=== PATIENT | male | born 1950 | race Caucasian/White ===

== ENCOUNTER 2021-12-31 08:52 | Observation (INO) | payer MEDICARE, SELFPAY ==
[2021-12-31] VITALS (13 sets, daily range): BP systolic 98–139; BP diastolic 43–63; PULSE 78–96; RESP 16–20; TEMP 36.6–37.4; O2SAT 95–100
--- NOTE | ~2021-12-31 | XR_ITS ---
XR knee LT min 4V DATE: 12/31/2021 10:30 INDICATION: Fall. Left knee pain, anterior abrasions TECHNIQUE: 4 views including crosstable lateral COMPARISON: None FINDINGS: Mild loss of height of medial compartment joint space. No fracture or dislocation or joint effusion. Superior pole patellar enthesopathy at quadriceps tendon insertion. No radiopaque intra-articular loose body or chondrocalcinosis. IMPRESSION: No fracture or dislocation or joint effusion Mild loss of height of medial compartment joint space Reviewed, dictated and finalized at location A.
--- NOTE | ~2021-12-31 | XR_ITS ---
XR knee RT min 4V DATE: 12/31/2021 10:30 INDICATION: Fall. Pain, anterior abrasions. TECHNIQUE: 4 views including crosstable lateral COMPARISON: None FINDINGS: Mild enthesopathy of the superior pole of the patella at the quadriceps tendon insertion. No fracture or dislocation or joint effusion. No periosteal reaction or bone destruction. No radiopaq ue intra-articular loose body or chondrocalcinosis. IMPRESSION: No fracture or dislocation or joint effusion Reviewed, dictated and finalized at location A.
--- NOTE | ~2021-12-31 | US_ITS ---
US venous doppler [facility] DATE: 01/01/2022 08:16 INDICATION: Edema of the right lower extremity TECHNIQUE: Real-time and color flow imaging and Doppler analysis of the veins of the right lower extr emity COMPARISON: None FINDINGS: The greater saphenous vein is patent. There is spontaneous and phasic flow and normal augme ntation and color flow signal and normal compression of the deep veins of the right lower extremity. IMPRESSION: Negative Reviewed, dictated and finalized at Location A. Reviewed, dictated and finalized at location A. IMPRESSION: Negative
--- NOTE | ~2021-12-31 | CT_ITS ---
EXAMINATION: CT brain wo con DATE: 12/31/2021 10:24 INDICATION: Fall. Weakness. TECHNIQUE: Computed tomography (CT) of the head was performed without intravenous contrast. The mA wa s adjusted according to patient size. Iterative reconstruction technique was employed. Exam dose: 60 5.33 mGy-cm total exam DLP. COMPARISON: None FINDINGS: Bilateral vertebral artery and prominent bilateral carotid siphon internal carotid artery c alcifications. There is nonspecific diminished attenuation cerebral white matter, likely due to chronic small vessel ischemic changes. Moderate cerebral and cerebellar volume loss. No intracranial mass lesion or hemorrhage, midline shif t or mass effect or cerebrovascular accident. No midline shifts or mass effect. No subdural or epidur al hematoma. Small mucus retention cyst or polyp of the left maxillary sinus. Minimal septal soft tissue thickenin g of the ethmoid air cells. The paranasal sinuses and mastoid air cells are otherwise unremarkable. No fracture or bone destruction of the cranial vault. IMPRESSION: Cerebral atherosclerosis and chronic small vessel ischemic changes of the cerebral white matter No acute intracranial finding Reviewed, dictated and finalized at Location [facility]. Reviewed, dictated and finalized at location A.
--- NOTE | ~2021-12-31 | XR_ITS ---
XR chest 2V DATE: 12/31/2021 09:19 INDICATION: Hypotension. Weakness. Dialysis yesterday. TECHNIQUE: AP and lateral views COMPARISON: None FINDINGS: Mild cardiomegaly. No pulmonary infiltrate or consolidation, pleural effusion or pulmonary vascular congestion or pneumo thorax is detected. Degenerative spurring of the lower thoracic spine. IMPRESSION: Mild cardiomegaly; no active pulmonary disease Reviewed, dictated and finalized at location A.
--- NOTE | ~2021-12-31 | XR_ITS ---
XR pelvis 1-2V DATE: 12/31/2021 10:30 INDICATION: Fall. Pelvic pain. TECHNIQUE: AP view COMPARISON: None FINDINGS: Multilevel degenerative disc disease of the lumbar spine. The pubic symphysis and sacroiliac joints are intact. Mild bilateral hip osteoarthritis. No pelvic fr acture or bone destruction is noted. IMPRESSION: No pelvic fracture Reviewed, dictated and finalized at location A. IMPRESSION: No pelvic fracture
--- NOTE | ~2021-12-31 | CT_ITS ---
EXAMINATION: CT lumbar spine wo con DATE: 12/31/2021 10:24 INDICATION: Fall. Lower back pain. TECHNIQUE: Computed tomography (CT) of the lumbar spine was performed without intravenous contrast. A utomated exposure control and iterative reconstruction technique were employed. Exam dose: 1270.49 m Gy-cm total exam DLP. COMPARISON: None FINDINGS. Bilateral vas deferens calcifications, suggesting diabetes. Normal alignment of lumbar spine. No fracture or bone destruction, spondylolysis or spondylolisthesis . There is mildly severe degenerative disc disease at L3-4 and L4-5, with loss of disc space height, de generative spurring, vacuum phenomenon. There is posterior disc bulging at L3-4, L4-5 and to a lesser extent L5-S1. Normal alignment at the sacroiliac joints. IMPRESSION: Moderate degenerative changes of the lumbar spine; no fracture Bilateral vas deferens calcifications, suggesting diabetes Reviewed, dictated and finalized at Location [facility]. Reviewed, dictated and finalized at location A.
--- NOTE | 2021-12-31 08:59 | ECG_ITS ---
Measurements Intervals [place] Rate: 83 P: 42 NM: 204 QRS: 48 QRSD: 100 T: 43 QT: 394 QTc: 464 Interpretive Statements SINUS RHYTHM NORMAL ECG NO PREVIOUS ECG AVAILABLE FOR COMPARISON Electronically Signed On 12-31-2021 14:47:40 CDT by Behzad Thomas D.O.
[2021-12-31 09:13] LABS: Basophils Absolute Auto 0.1 K/mm3 (0.0-0.1); Basophils Percent Auto 0.4 % (0.2-1.2); Eosinophils Percent Auto 0.2 % (0-4.4); Hematocrit 30.1 % (42.0-52.0); Immature Granulocyte Absolute 0.13 K/mm3 (0.00-0.031); Immature Granulocyte Percent A 0.7 % (0-0.5); Lymphocytes Absolute Auto 0.97 K/mm3 (0.9-3.2); Lymphocytes Percent Auto 5.2 % (18.3-44.2); Mean Corpuscular HGB Conc 33.2 g/dl (32-36); Mean Corpuscular Volume 93.2 fl (80-100); Mean Platelet Volume 9.8 fl (7.4-10.4); Monocytes Absolute Auto 1.4 K/mm3 (0.1-0.6); Monocytes Percent Auto 7.3 % (2.6-8.5); Neutrophils Absolute Auto 16.2 K/mm3 (1.3-6.7); Neutrophils Percent Auto 86.2 % (45.5-73.1); Platelet Count Result 172 k/mm3 (150-375); Red Blood Count 3.23 M/mm3 (4.6-6.20); White Blood Count 18.8 K/mm3 (4.5-10.0)
[2021-12-31 09:22] LABS: Alanine Aminotransferase 27 U/L (6-50); Albumin Level 4.3 g/dL (3.5-5.1); Alkaline Phosphatase 42 U/L (38-126); Anion Gap 16 mmol/L (8-16); Aspartate Amino Transferase 30 U/L (17-59); Bilirubin,Total 0.4 mg/dL (0.2-1.3); Blood Urea Nitrogen 46 mg/dL (9-20); Calcium 8.4 mg/dL (8.4-10.2); Carbon Dioxide 27 mmol/L (22-30); Chloride 91 mmol/L (98-107); Estimated CRCL calculation 15 ml/min; Estimated Glomerular Filt Rate 11; Glucose 92 mg/dL (65-110); Potassium 5.1 mmol/L (3.4-5.0); Sodium 134 mmol/L (137-145)
--- NOTE | 2021-12-31 09:24 | ED.WEAKNESS ---
HPI - Weakness General Chief complaint: Weakness Stated complaint: Fall, Hypotension Time Seen by Provider: 12/31/21 09:12 Source: patient Mode of arrival: EMS Limitations: no limitations History of Present Illness HPI Narrative: This is a 71 year old male that presents to the ER for generalized weakness. Reports he fell at about midnight last night trying to get out of bed. He layed on the ground until this morning when he was finally able to get to the phone to call an ambulance. Reports generalized weakness and bilateral knee pain. Reports shortness of breath that seems to be at his baseline. Denies fever, cough, chest pain, abdominal pain, or dysuria. Related Data Home Medications Medication Instructions Recorded Confirmed amlodipine 5 mg tablet 5 mg PO DAILY 06/05/19 04/05/20 aspirin 81 mg tablet,delayed 81 mg PO DAILY 06/05/19 04/05/20 release (Adult Aspirin Regimen) calcium citrate 200 mg (950 mg) 200 mg PO DAILY 06/05/19 04/05/20 tablet (Calcitrate) carvedilol 25 mg tablet 25 mg PO Q12H 06/05/19 04/05/20 citalopram 40 mg tablet 20 mg PO DAILY 06/05/19 04/05/20 lisinopril 5 mg tablet 5 mg PO DAILY 06/05/19 04/05/20 cholecalciferol (vitamin D3) 1,250 50,000 unit PO 2XW 06/07/19 04/05/20 mcg (50,000 unit) tablet donepezil 10 mg tablet 10 mg PO DAILY 06/07/19 04/05/20 lovastatin 40 mg tablet 40 mg PO QPM 06/07/19 04/05/20 quetiapine 100 mg tablet 100 mg PO DAILY 06/07/19 04/05/20 clonazepam 1 mg tablet 1 mg PO BID 01/01/20 04/05/20 fenofibrate micronized 200 mg 160 mg PO DAILY 01/01/20 04/05/20 capsule gabapentin 300 mg capsule 600 mg PO TID 04/05/20 04/05/20 omega-3 fatty acids 1,000 mg 3,000 mg PO BID 04/05/20 04/05/20 capsule (Fish Oil Concentrate) Allergies Allergy/AdvReac Type Severity Reaction Status Date / Time No Known Allergies Allergy Verified 12/31/21 09:02 Review of Systems Review of Systems: CONSTITUTIONAL: Denies fever CARDIOVASCULAR: Denies chest pain, or edema. RESPIRATORY: Reports dyspnea. Denies cough GASTROINTESTINAL: Denies abdominal pain, nausea, vomiting GENITOURINARY: Denies dysuria NEUROLOGIC: Reports generalized weakness. All systems reviewed & are unremarkable except as noted in HPI and below PMFSH Past Medical History Medical History (Updated 12/31/21 @ 09:25 by Malka Eubanks PA-C) History of end stage renal disease History of hyperlipidemia History of hypertension History of pancreatitis Proteinuria due to type 2 diabetes mellitus Type 2 diabetes mellitus with hyperglycemia, with long-term current use of insulin Family History Family History Other Depression Diabetes mellitus Family history of cardiovascular disease Family history of congestive heart failure Family history of lung cancer Family history of mental disorder Hypertension Social History Social History Smoking status: Never smoker Alcohol intake: never Exam Narrative: GENERAL: Elderly, well-nourished, and in no acute distress. HEAD: Normocephalic, atraumatic. EYES: PERRLA and EOMI. ENT: Nares clear, no rhinorrhea or epistaxis. Mucous membranes moist. Oropharynx without tonsillar hypertrophy exudate or other lesions. Bilateral TMs pearly hearn non-bulging NECK: Supple. No adenopathy or masses. No midline cervical spine tenderness CHEST: Clear to auscultation. No respiratory distress. No wheezes rales or rhonchi HEART: Regular rate and rhythm. No murmur heard. Normal peripheral pulses. ABDOMEN: Soft, nontender, nondistended, normal active bowel sounds. BACK: No midline thoracic spine tenderness. Tender to palpation of midline lumbar spine EXTREMITIES: Normal range of motion. No edema or obvious deformity. SKIN: Warm, dry, no rash. NEURO: No focal deficits. Alert and oriented x3. PSYCH: Normal mood and affect Course Consultations Consultation #1: Spoke with [facility]
[2021-12-31 09:33] LABS: Lipase 81 U/L (23-300)
[2021-12-31 10:19] LABS: Creatine Kinase 255 U/L (55-170)
[2021-12-31 10:48] LABS: Influenza A QL RT-PCR Negative (Negative); Influenza B QL RT-PCR Negative (Negative); SARS-CoV-2 RNA PCR Negative
--- NOTE | 2021-12-31 10:53 | PC.NURSE ---
Patient attempting to give urine sample, patient reports that he does not produce much urine per day.
[2021-12-31 13:18] LABS: CRP 4.8 mg/dL (<1.0)
[2021-12-31] MEDS: ACETAMINOPHEN 500 MG TABLET 1000 MG PO (13:48)
[2021-12-31 13:57] LABS: Erythrocyte Sedimentation Rate 72 mm/hr (0-20)
--- NOTE | 2021-12-31 14:15 | ADMGEN ---
This patient, Jamie Fajardo, was admitted to Medical Room 252-01. Patient/family oriented to hospital policies and general routines including ID bracelet, bed and alarms, visiting hours, pain management, procedures, bathroom and other care routines, personal items, smoking policy, room service/diet, and visiting hours. Information on how to activate the Rapid Response Team has been discussed. Patient/Family are encouraged to report perceived risks to care and to ask questions if they do not understand what they are told or what they should do.
--- NOTE | 2021-12-31 17:00 | PM.IMHP ---
H&P: HPI History of Present Illness Date/Time: 12/31/21 17:00 Chief Complaint: Fall. Narrative: This is a very pleasant 71-year-old male with insulin dependent diabetes, end stage renal disease on hemodialysis, hypertension, sleep apnea, and other comorbidities who presented to the ED via EMS from home for evaluation after a fall. He up around midnight to use the restroom at which time he felt weak and dizzy, reporting that he was trembling . He was on able to stay upright and fell back into the bed and slid down onto the floor where he landed on his buttocks. He tried repeatedly to get himself up but was unable to do so. In fact he spent approximately 8 hours on the ground until he was able to crawl to a phone to call for help this morning. He has had similar instances and they seem to occur when going from seated to standing positions. He has had falls in the past but nothing recent. There was no head trauma or loss of consciousness with the fall last night however he does have history of syncope in similar settings, perhaps 2 times already this month. On arrival to the emergency department his blood pressure was 98/46 though unfortunately they did not obtain orthostatic vital signs. Imaging of the brain, lumbar spine, knees, pelvis, and chest x-ray showed no acute findings. Pertinent labs include a white blood cell count of 18.8, hemoglobin 10.0, sodium 134, potassium 5.1, BUN 46, creatinine 5.10, total CK 255, CRP 4.8. With further questioning he has not had any recent cold or flu symptoms, fever, chills, sweats, cough, nausea, vomiting, or dysuria. He has however just started to have diarrhea today, reporting lose dark green stools of which he has had several. He has no abdominal pain or discomfort and he denies sick contacts. He was on antibiotics several weeks ago for an upper respiratory infection but that has since resolved. No history of C diff. Review of Systems Review of Systems: Twelve systems were reviewed. Weight has remained stable. No sick contacts. Appetite has been good. No nausea or vomiting. He does still urinate a few times a day and he denies dysuria. He wears his CPAP at nighttime. He monitors his glucose closely and is rarely close to 200. Except as documented, all other systems were reviewed and are negative. [facility] Past Medical History Medical History (Updated 12/31/21 @ 23:10 by Amanda Marte PA-C) Chronic obstructive pulmonary disease Congestive heart failure End-stage renal disease on hemodialysis Sunday, Sunday, Sunday. Hyperlipidemia Hypertension Insulin dependent type 2 diabetes mellitus Obstructive sleep apnea on CPAP Pancreatitis Surgical History Surgical History (Updated 12/31/21 @ 23:05 by Amanda Marte PA-C) History of bilateral cataract extraction History of fusion of cervical spine Family History Family History Mother Family history of congestive heart failure Hypertension Family history of mental disorder Diabetes mellitus Depression Family history of cardiovascular disease Father Family history of lung cancer Family history of mental disorder Depression Social History Social History (Updated 12/31/21 @ 23:06 by Amanda Marte PA-C) Social History: Surrogate medical decision maker: Katlin Freitas, daughter. Code status: Full code. Smoking status: Former smoker Additional smoking assessment comments: Quit greater than 30 years ago. Alcohol intake: never Substance use: never Additional living arrangements comments: Lives alone in [place]. 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 Spiritual care concerns: No Meds Home Medications and Allergies Home Medications Medication Instructions Recorded Confirmed Type blood-glucose meter (Accu-Chek #1 ea 03/19/19 12/31/21 Rx Charleen Plus Meter) amlodipine 5 mg tablet 10 mg PO DAILY 06/05/19
[2021-12-31 17:32] LABS: Glucose Point of Care 196 mg/dl (65-105)
[2021-12-31 18:06] LABS: Appearance Urine Clear (Clear); Bilirubin Urine Negative (Negative); Blood Urine Trace-lysed (Negative); Color Urine Yellow (Yellow); Glucose Urine UA 1+ mg/dL (Negative); Ketones Urine Negative (Negative); Leukocyte Esterase Ur Negative LEU/UL (Negative); Nitrate Urine Negative (Negative); Protein Urine 1+ mg/dL (Negative); Specific Grav Ur 1.015 (1.001-1.035); Urobilinogen Urine 0.2 mg/dL (<2.0); pH Urine 7.5 (5.0-9.0)
[2021-12-31 18:14] LABS: Bacteria Urine Trace /hpf; Mucus Urine Rare /lpf; RBC Urine 0-2 /hpf (0-2); Squamous Epithelial Cell Urine Rare /hpf (Few); WBC Urine 0-3 /hpf
[2021-12-31 18:17] LABS: Add Urine Microscopic? YES
[2021-12-31 19:08] LABS: Anion Gap 13 mmol/L (8-16); Blood Urea Nitrogen 57 mg/dL (9-20); Calcium 8.7 mg/dL (8.4-10.2); Carbon Dioxide 26 mmol/L (22-30); Chloride 91 mmol/L (98-107); Estimated CRCL calculation 14 ml/min; Estimated Glomerular Filt Rate 10; Glucose 250 mg/dL (65-110); Hemoglobin A1C 8.4 % (<5.7); Phosphorus 4.1 mg/dL (2.5-4.5); Potassium 4.3 mmol/L (3.4-5.0); Sodium 130 mmol/L (137-145)
[2021-12-31] MEDS: ACETAMINOPHEN 325 MG TABLET 650 MG PO (20:08)
[2021-12-31] MEDS: GABAPENTIN 300 MG CAPSULE 600 MG PO (20:09)
[2021-12-31] MEDS: LOVASTATIN 20 MG TABLET 40 MG PO (20:09)
[2021-12-31 21:34] LABS: Glucose Point of Care 228 mg/dl (65-105)
[2021-12-31] MEDS: clonazePAM (*CRX) 0.5 MG TABLET 1 MG PO (21:35)
[2021-12-31] MEDS: QUEtiapine FUMARATE 100 MG TABLET 200 MG PO (21:35)
[2022-01-01] VITALS (15 sets, daily range): BP systolic 103–142; BP diastolic 46–76; PULSE 71–84; RESP 16–20; TEMP 36.3–36.7; O2SAT 95–99
[2022-01-01 06:15] LABS: Hematocrit 29.5 % (42.0-52.0); Hemoglobin 9.7 g/dL (14.0-18.0); Mean Corpuscular HGB Conc 32.9 g/dl (32-36); Mean Corpuscular Hemoglobin 30.6 pg (26-34); Mean Corpuscular Volume 93.1 fl (80-100); Mean Platelet Volume 10.3 fl (7.4-10.4); Platelet Count Result 161 k/mm3 (150-375); Red Blood Count 3.17 M/mm3 (4.6-6.20); Red Cell Distribution Width 14.4 % (11.5-14.5); White Blood Count 9.5 K/mm3 (4.5-10.0)
[2022-01-01 06:31] LABS: Alanine Aminotransferase 27 U/L (6-50); Albumin Level 3.9 g/dL (3.5-5.1); Alkaline Phosphatase 40 U/L (38-126); Anion Gap 14 mmol/L (8-16); Aspartate Amino Transferase 30 U/L (17-59); Bilirubin,Total 0.4 mg/dL (0.2-1.3); Blood Urea Nitrogen 64 mg/dL (9-20); Calcium 8.7 mg/dL (8.4-10.2); Carbon Dioxide 25 mmol/L (22-30); Chloride 94 mmol/L (98-107); Estimated CRCL calculation 14 ml/min; Estimated Glomerular Filt Rate 10; Glucose 115 mg/dL (65-110); Iron 30 ug/dL (49-181); Magnesium 1.6 mg/dL (1.6-2.3); Phosphorus 6.2 mg/dL (2.5-4.5); Potassium 3.6 mmol/L (3.4-5.0); Sodium 133 mmol/L (137-145)
[2022-01-01 06:40] LABS: Percent Iron Saturation 10 % (20-50)
[2022-01-01 06:44] LABS: CRP 16.8 mg/dL (<1.0)
[2022-01-01 06:58] LABS: Thyroid Stimulating Hormone Reflex 0.371 uIU/mL (0.465-4.68)
[2022-01-01 07:30] LABS: Folic Acid 4.6 ng/mL (2.76->20)
[2022-01-01 08:18] LABS: Free T4 Free Thyroxine Reflex 0.96 ng/dL (0.78-2.19)
[2022-01-01] MEDS: allopurinoL 100 MG TABLET PO (08:32)
[2022-01-01] MEDS: CITALOPRAM HYDROBROMIDE 20 MG TABLET 40 MG PO (08:32)
[2022-01-01] MEDS: AMITRIPTYLINE HCL 25 MG TABLET 100 MG PO (08:32)
[2022-01-01] MEDS: metOLazone 5 MG TABLET PO (08:32)
[2022-01-01] MEDS: ERGOCALCIFEROL 50,000 UNIT CAPSULE 50000 UNITS PO (08:32)
[2022-01-01] MEDS: GABAPENTIN 300 MG CAPSULE 600 MG PO ×3 (08:32→16:19)
[2022-01-01] MEDS: carvediloL 25 MG TABLET PO ×2 (08:33→16:18)
[2022-01-01] MEDS: FUROSEMIDE 40 MG TABLET PO (08:33)
[2022-01-01] MEDS: lisinopriL 5 MG TABLET PO (08:33)
[2022-01-01] MEDS: HEPARIN SODIUM 5,000 UNITS/ML VIAL 5000 UNITS SUB-Q ×2 (08:34→21:31)
[2022-01-01 08:41] LABS: Glucose Point of Care 108 mg/dl (65-105)
[2022-01-01 09:46] LABS: Total Triiodothyronine (T3) 0.66 NG/ML (0.97-1.69)
--- NOTE | 2022-01-01 11:34 | PM.IMPN ---
Progress Note: A&P Assessment and Plan (1) Fall from bed: Code(s): W06.XXXA - Fall from bed, initial encounter Status: Acute Assessment and Plan: will have PT OT evaluate the patient. See with the recommendations are. Patient may need placement. (2) Leukocytosis: Code(s): D72.829 - Elevated white blood cell count, unspecified Status: Acute (3) Unsteady gait: Code(s): R26.81 - Unsteadiness on feet Status: Acute (4) End-stage renal disease on hemodialysis: Code(s): N18.6 - End stage renal disease; Z99.2 - Dependence on renal dialysis Status: Acute (5) Hypertension: Code(s): I10 - Essential (primary) hypertension Status: Acute (6) Insulin dependent type 2 diabetes mellitus: Code(s): E11.9 - Type 2 diabetes mellitus without complications; Z79.4 - residential (current) use of insulin Status: Acute (7) Obstructive sleep apnea on CPAP: Code(s): G47.33 - Obstructive sleep apnea (adult) (pediatric); Z99.89 - Dependence on other enabling machines and devices Status: Acute (8) Congestive heart failure: Code(s): I50.9 - Heart failure, unspecified Status: Acute Subjective Date/time seen: 01/01/22 11:34 still weak Exam Narrative: General: Chronically ill-appearing male sitting up in bed in no acute distress. Weight: 121.8 kilograms. BMI: 42.1. HEENT: PERRL, EOMI. Sclera anicteric. Oral mucosa is moist. Oropharynx is crowded and poorly visualized. Neck: Supple. Exam limited due to neck circumference. No obvious carotid bruits. Respiratory: Respirations are even and nonlabored. Lungs are clear to auscultation. Cardiovascular: Regular rate and rhythm with S1-S2. Distant heart sounds. Gastrointestinal: Abdomen is soft, morbidly obese, and nontender with positive bowel sounds. Skin: Warm and dry. Chronic stasis dermatitis of the lower legs bilaterally without evidence of infection. Extremities: No cyanosis or clubbing. Radial and pedal pulses intact. Neurological: Alert and oriented. Cranial nerves 2-12 are grossly intact. Speech is clear. No facial asymmetry. No gross focal deficits to casual conversation. Psychiatric: Pleasant and cooperative with normal mood and affect. Judgment and insight intact. Objective Data Vital Signs Vital Signs: Vital Signs - 24 hr 12/31/21 13:55 12/31/21 15:07 12/31/21 15:00 Temperature Pulse Rate 79 Respiratory Rate 18 Blood Pressure 120/58 L 126/52 L Pulse Oximetry 98 Oxygen Delivery Room Air 12/31/21 15:35 12/31/21 15:05 12/31/21 14:50 Temperature 98.7 F Pulse Rate 81 Respiratory Rate 18 Blood Pressure 133/47 L 127/52 L Pulse Oximetry 97 Oxygen Delivery Room Air 12/31/21 20:18 12/31/21 22:28 12/31/21 22:29 Temperature 97.8 F 97.8 F Pulse Rate 84 84 Respiratory Rate 18 18 Blood Pressure 120/59 L 120/59 L Pulse Oximetry 95 95 Oxygen Delivery Room Air 12/31/21 22:30 12/31/21 22:32 12/31/21 23:36 Temperature 98.4 F 98.3 F Pulse Rate 94 96 87 Respiratory Rate 18 18 Blood Pressure 119/54 L 110/63 Pulse Oximetry 96 97 Oxygen Delivery 01/01/22 00:07 01/01/22 04:00 01/01/22 06:00 Temperature 97.4 F L Pulse Rate 84 80 79 Respiratory Rate 20 Blood Pressure 142/59 H Pulse Oximetry 99 Oxygen Delivery 01/01/22 08:33 01/01/22 08:42 01/01/22 10:40 Temperature Pulse Rate 83 Respiratory Rate Blood Pressure Pulse Oximetry Oxygen Delivery Room Air Room Air Intake/Output Intake/Output: Intake & Output 12/29/21 12/30/21 12/31/21 01/01/22 23:59 23:59 23:59 23:59 Intake Total 240 740 Output Total 50 Balance 190 740 Meds/Results Medications: Active Medications Generic Name Dose Route Start Last Admin Trade Name Freq PRN Reason Stop Dose Admin Acetaminophen 650 mg 12/31/21 18:45 12/31/21 20:08 Acetaminophen 325 Mg Tablet PO 650 mg Q6H PRN Administration
[2022-01-01 12:03] LABS: Glucose Point of Care 102 mg/dl (65-105)
[2022-01-01 17:20] LABS: Glucose Point of Care 79 mg/dl (65-105)
[2022-01-01] MEDS: QUEtiapine FUMARATE 100 MG TABLET 200 MG PO (21:31)
[2022-01-01] MEDS: LOVASTATIN 20 MG TABLET 40 MG PO (21:31)
[2022-01-01] MEDS: clonazePAM (*CRX) 0.5 MG TABLET 1 MG PO (21:31)
[2022-01-01 22:00] LABS: Glucose Point of Care 118 mg/dl (65-105)
[2022-01-02] VITALS (18 sets, daily range): BP systolic 90–133; BP diastolic 49–71; PULSE 60–81; RESP 16–20; TEMP 36.3–37; O2SAT 97–100
--- NOTE | 2022-01-02 | ECHO_ITS ---
Patient Info Name: Jamie Fajardo Age: 71 years : 1950 Gender: Male Ht: 67 in Wt: 268 lbs BSA: 2.46 m2 HR: 72 bpm BP: 124 / 58 mmHg Heart Rhythm: Sinus Rhythm Exam Date: 01/02/2022 8:45 AM Exam Location: [facility] Patient Status: Outpatient Admit Date: 12/31/2021 Staff Ordering Physician: Amanda Marte PA-C Medicine Assistant: Gurwinder Patrick RDCS, RT Attending Provider: Gisel Balderas MD Referring Physician: Rosanna BAEZ; Exam Type: CA echo doppler color flow Study Info Indications I10 - Essential (primary) hypertension I51.7 - Cardiomegaly Complete two-dimensional, color flow and Doppler transthoracic echocardiogram is performed. Strain analysis performed. Summary 1. Complete two-dimensional, color flow and Doppler transthoracic echocardiogram is performed. 2. Left ventricular chamber dimension is normal. 3. Left ventricular systolic function is lower limits of normal, estimated at 50-55%. 4. There is moderately increased left ventricular wall thickness. 5. Left ventricular septal wall motion is abnormal with septal motion related to bundle branch block. 6. The left ventricular diastolic function is grade I diastolic dysfunction. 7. Global longitudinal strain is mildly elevated at -15 %. 8. There is no aortic valve stenosis. 9. There is mild mitral valve regurgitation. 10. There is trace tricuspid valve regurgitation. 11. Unable to estimate PA systolic pressure due to poor spectral resolution of tricuspid regurgitant jet velocity. Left Ventricle Left ventricular chamber dimension is normal. Left ventricular systolic function is lower limits of normal, estimated at 50-55%. There is moderately increased left ventricular wall thickness. Left ventricular septal wall motion is abnormal with septal motion related to bundle branch block. The left ventricular diastolic function is grade I diastolic dysfunction. Global longitudinal strain is mildly elevated at -15 %. Right Ventricle Right ventricular chamber dimension is normal. Right ventricular systolic function is normal. Left Atria Left atrial chamber dimension is normal. Right Atria Right atrial chamber dimension is mildly enlarged. Aortic Valve The aortic valve is not well visualized. There is no aortic valve stenosis. There is no aortic valve regurgitation. There is mild aortic valve calcification. Pulmonic Valve The pulmonic valve is not well visualized. Mitral Valve The mitral valve has normal leaflets. There is mild mitral valve regurgitation. The mitral valve annulus is mildly calcified. Tricuspid Valve The tricuspid valve leaflets are normal. There is trace tricuspid valve regurgitation. Unable to estimate PA systolic pressure due to poor spectral resolution of tricuspid regurgitant jet velocity. Pericardium/Pleural The pericardium appears epicardial fat pad. There is no pericardial effusion. Inferior Vena Cava Dilated inferior vena cava with >50% collapse upon inspiration consistent with elevated right atrial pressure, 10 mmHg. Aorta The aortic root size at the sinus of Valsalva is normal. There is mild aortic atherosclerosis. Left Ventricular Outflow Tract Name Value Normal LVOT 2D
[2022-01-02 05:31] LABS: Albumin Level 4.1 g/dL (3.5-5.1); Anion Gap 15 mmol/L (8-16); Blood Urea Nitrogen 77 mg/dL (9-20); Calcium 8.8 mg/dL (8.4-10.2); Carbon Dioxide 25 mmol/L (22-30); Chloride 94 mmol/L (98-107); Estimated CRCL calculation 13 ml/min; Estimated Glomerular Filt Rate 9; Glucose 94 mg/dL (65-110); Phosphorus 7.3 mg/dL (2.5-4.5); Potassium 4.3 mmol/L (3.4-5.0); Sodium 134 mmol/L (137-145)
[2022-01-02 06:19] LABS: Hepatitis B Surface Antigen Negative (Negative)
[2022-01-02 06:36] LABS: Hepatitis B Surface Antibody > 1000.00 s/c
[2022-01-02 07:16] LABS: Hepatitis B Surface Anti Res Positive
[2022-01-02 08:26] LABS: Glucose Point of Care 101 mg/dl (65-105)
[2022-01-02] MEDS: HEPARIN SODIUM 5,000 UNITS/ML VIAL 5000 UNITS SUB-Q (08:54)
[2022-01-02] MEDS: GABAPENTIN 300 MG CAPSULE 600 MG PO ×2 (08:54→13:07)
[2022-01-02] MEDS: allopurinoL 100 MG TABLET PO (08:56)
[2022-01-02] MEDS: metOLazone 5 MG TABLET PO (08:56)
[2022-01-02] MEDS: AMITRIPTYLINE HCL 25 MG TABLET 100 MG PO (08:56)
[2022-01-02] MEDS: FUROSEMIDE 40 MG TABLET PO (08:56)
[2022-01-02] MEDS: carvediloL 25 MG TABLET PO (08:57)
[2022-01-02] MEDS: lisinopriL 5 MG TABLET PO (08:57)
--- NOTE | 2022-01-02 10:49 | PCPTNOTE ---
The patient treatment was not able to be completed at this time due to patient out of room for dialysis. Will plan to continue treatment per plan of care.
--- NOTE | 2022-01-02 11:42 | PM.CNNEP ---
Assessment and Plan Assessment and plan (1) End-stage renal disease on hemodialysis: Code(s): N18.6 - End stage renal disease; Z99.2 - Dependence on renal dialysis Status: Chronic Assessment and Plan: HD today continue M/W/F dialysis schedule normally follows with Dr. Dunaway at [facility] Noted plans for discharge -- he can follow-up with his primary medical office assistant instructor at his outpatient dialysis center. History of Present Illness Reason for Consult Consult date: 01/02/22 Reason for consult: end stage renal disease Chief Complaint Chief complaint: Weakness History of Present Illness Narrative: The patient is a 71-year-old male with an extensive past medical history as outlined below who presented to [facility] Emergency room for further evaluation after a fall. Apparently, around midnight, the patient attended the use the restroom at which point he became somewhat weak and dizzy that he described as a trembling. he was unable to stay upright and fell back into bed and slid down to the floor and landed on his buttocks. He was unable to get himself up despite multiple attempts to do so and he apparently spent about 8 hours on the ground until he was unable to crawl to a phone and call for help. There was no reported head trauma, loss of consciousness or palpitations that he can recall. EMS was called and he was subsequently brought to the emergency room for further evaluation. Workup and evaluation in emergency room demonstrated the patient to be hemodynamically stable with his blood pressure in the high 90 systolic but it does not appear that they checked orthostatic vital signs. CT imaging of his brain, lumbar spine, knees, pelvis were negative for any type of acute pathology and a chest x-ray demonstrated no acute findings as well. Routine blood tests were done which were consistent with his known history of end-stage renal disease although he did have a white blood cell count of 18.8. He had no other subjective symptoms per se but given his complex medical history as well as the constellation of symptoms that led to his presentation, he was admitted the hospital for further evaluation and therapy. Since admission, he has remained relatively stable with no other acute issues or findings. He just completed his hemodialysis treatment today as he was due for it and he tolerated the procedure reasonably well although he has some cramping in the last 1/2 hour and requested to and his treatment a bit early. Renal consultation was requested due to his end-stage renal disease. The patient normally dialyzes on a Sunday, Sunday, Sunday dialysis schedule under the care of Dr. Dunaway at [facility]. as far as I am aware, the patient is compliant with his dialysis treatments and has not had any issues or problems per Se as far as he is aware. As already mentioned, he was due for dialysis today and received it earlier today without any significant issues or problems other than the a for mentioned cramping as mention which led to him and in his treatment a bit early. Currently, at the time my evaluation, the patient appears to be in no acute distress. Review of Systems Review of Systems: As per HPI. [facility] Past Medical History Medical History (Updated 01/08/22 @ 16:16 by Hernando Norris MD) Chronic obstructive pulmonary disease Congestive heart failure End-stage renal disease on hemodialysis Sunday, Sunday, Sunday. Hyperlipidemia Hypertension Insulin dependent type 2 diabetes mellitus Obstructive sleep apnea on CPAP Pancreatitis Surgical History Surgical History (Updated 12/31/21 @ 23:05 by Amanda Marte PA-C) History of bilateral cataract extraction History of fusion of cervical spine Family History Family History Mother Family history of congestive heart failure Hypertension Family history of mental dis
--- NOTE | 2022-01-02 12:03 | PM.DS ---
DS: Admitting Diagnosis Discharge Date January 02, 2022 Admitting Diagnosis fall DS: Discharge Diagnosis Discharge Diagnosis (1) Fall from bed: Code(s): W06.XXXA - Fall from bed, initial encounter Status: Acute (2) Leukocytosis: Code(s): D72.829 - Elevated white blood cell count, unspecified Status: Acute (3) Unsteady gait: Code(s): R26.81 - Unsteadiness on feet Status: Acute (4) End-stage renal disease on hemodialysis: Code(s): N18.6 - End stage renal disease; Z99.2 - Dependence on renal dialysis Status: Acute (5) Hypertension: Code(s): I10 - Essential (primary) hypertension Status: Acute (6) Insulin dependent type 2 diabetes mellitus: Code(s): E11.9 - Type 2 diabetes mellitus without complications; Z79.4 - long-term (current) use of insulin Status: Acute (7) Obstructive sleep apnea on CPAP: Code(s): G47.33 - Obstructive sleep apnea (adult) (pediatric); Z99.89 - Dependence on other enabling machines and devices Status: Acute (8) Congestive heart failure: Code(s): I50.9 - Heart failure, unspecified Status: Acute DS: Summary Hospital Course Hospital Course: patient was admitted for weakness and fall. Etiology is unknown. Patient reports he rolled out of bed and fell on the floor was unable to get up. Upon evaluation here he was able to work with physical therapy and occupational therapy and did exceptionally well he is able to walk in the sher with a walker. I do not think the patient needs any ongoing rehab placement. Patient discharged home. To note she did have a mildly low blood pressure of 100 over 57. I will hold his amlodipine but this can be continued per primary or nephrology Upon follow-up.. Time Spent with Patient Time attestation: Total time spent providing and/or coordinating discharge services: Exam Narrative: General: Chronically ill-appearing male sitting up in bed in no acute distress. Weight: 121.8 kilograms. BMI: 42.1. HEENT: PERRL, EOMI. Sclera anicteric. Oral mucosa is moist. Oropharynx is crowded and poorly visualized. Neck: Supple. Exam limited due to neck circumference. No obvious carotid bruits. Respiratory: Respirations are even and nonlabored. Lungs are clear to auscultation. Cardiovascular: Regular rate and rhythm with S1-S2. Distant heart sounds. Gastrointestinal: Abdomen is soft, morbidly obese, and nontender with positive bowel sounds. Skin: Warm and dry. Chronic stasis dermatitis of the lower legs bilaterally without evidence of infection. Extremities: No cyanosis or clubbing. Radial and pedal pulses intact. Neurological: Alert and oriented. Cranial nerves 2-12 are grossly intact. Speech is clear. No facial asymmetry. No gross focal deficits to casual conversation. Psychiatric: Pleasant and cooperative with normal mood and affect. Judgment and insight intact. DS: Data Data Completed and Pending Labs on day of discharge: Labs from last 24 hours 01/02/22 01/02/22 01/02/22 08:19 05:01 05:01 Sodium 134 L Potassium 4.3 Chloride 94 L Carbon Dioxide 25 Anion Gap 15 BUN 77 H D Creatinine 6.10 H Estim Creat Clear Calc 13 Estimated GFR 9 L Glucose 94 POC Capillary Glucose 101 Calcium 8.8 Phosphorus 7.3 H Albumin 4.1 Hep Bs Antigen Negative Hep Bs Antibody Positive 01/01/22 01/01/22 01/01/22 21:30 17:18 11:58 Sodium Potassium Chloride Carbon Dioxide Anion Gap BUN Creatinine Estim Creat Clear Calc Estimated GFR Glucose POC Capillary Glucose 118 H 79 102 Calcium Phosphorus Albumin Hep Bs Antigen Hep Bs Antibody Discharge Plan Discharge Attending physician on discharge: Terrance Pete Consulting providers: Malka Eubanks ; Lobo Nielsen Discharging Clinician: Terrance Pete Patient Disposition: Home, Self-Care Activ
[2022-01-02 13:05] LABS: Glucose Point of Care 57 mg/dl (65-105)
[2022-01-02] MEDS: CITALOPRAM HYDROBROMIDE 20 MG TABLET 40 MG PO (13:07)
[2022-01-02 13:52] LABS: Glucose Point of Care 124 mg/dl (65-105)
== END 2022-01-02 17:09 | disposition home or self-care (01) ==
LOC: ANHED 13:20 → ANH2MED 13:49
PROVIDERS: Emergency Medicine; Internal Medicine Nephrology; Physician Assistant; Admitting Provider Hospitalist; Emergency Provider Emergency Medicine; PCP Internal Medicine; Visit Provider Chiropractor
DX: R53.1 Weakness (principal); W06.XXXA Fall from bed, initial encounter; D72.829 Elevated white blood cell count, unspecified; R26.81 Unsteadiness on feet; I13.2 Hypertensive heart and chronic kidney disease with heart failure and with stage 5 chronic kidney disease, or end stage renal disease; I50.30 Unspecified diastolic (congestive) heart failure; Z99.2 Dependence on renal dialysis; N18.6 End stage renal disease; E11.22 Type 2 diabetes mellitus with diabetic chronic kidney disease; E11.65 Type 2 diabetes mellitus with hyperglycemia; R80.9 Proteinuria, unspecified; G47.33 Obstructive sleep apnea (adult) (pediatric); Z99.89 Dependence on other enabling machines and devices; M25.562 Pain in left knee; M25.561 Pain in right knee; R06.02 Shortness of breath; E78.5 Hyperlipidemia, unspecified; I34.0 Nonrheumatic mitral (valve) insufficiency; Z20.822 Contact with and (suspected) exposure to COVID-19; I67.2 Cerebral atherosclerosis; R90.82 White matter disease, unspecified; M51.36 Other intervertebral disc degeneration, lumbar region; R19.7 Diarrhea, unspecified; N50.89 Other specified disorders of the male genital organs; R46.89 Other symptoms and signs involving appearance and behavior; J44.9 Chronic obstructive pulmonary disease, unspecified; Z87.891 Personal history of nicotine dependence; Z79.1 Long term (current) use of non-steroidal anti-inflammatories (NSAID); Z79.4 Long term (current) use of insulin; Z79.51 Long term (current) use of inhaled steroids; Z79.82 Long term (current) use of aspirin; Z79.899 Other long term (current) drug therapy; Z83.3 Family history of diabetes mellitus; Z82.49 Family history of ischemic heart disease and other diseases of the circulatory system; Z84.89 Family history of other specified conditions
CPT/HCPCS: 36415; 70450; 71046; 72131; 72170; 73564; 80048; 80053; 80069; 81001; 82550; 82607; 82728; 82746; 82948; 83036; 83540; 83550; 83690; 83735; 84100; 84439; 84443; 84480; 85025; 85027; 85652; 86140; 86706; 87340; 87502; 93005; 93306; 93970; 94660; 96372; 97110; 97116; 97161; 97165; 99285; A9270; C9803; G0257; G0378; J1644; J1815; J7030; U0003; U0005

== ENCOUNTER 2022-04-08 07:42 | Emergency (ER) | payer MEDICARE, SELFPAY ==
[2022-04-08 07:43] VITALS: BP 175/68; PULSE 94; RESP 22; TEMP 36.4; O2SAT 100
--- NOTE | 2022-04-08 07:53 | PC.NURSE ---
Screening Technician informed patient no room is available at this time and patient reported he did not want to wait and he would come back another time. Screening Technician expressed the risks or leaving and patient reported he still wanted to leave. Patient was alert and ambulatory with his walked out of the emergency department.
== END 2022-04-08 07:54 | disposition left against medical advice (07) ==
LOC: ANHED 07:58
PROVIDERS: PCP Internal Medicine
DX: M54.9 Dorsalgia, unspecified (principal)
CPT/HCPCS: 99199

== ENCOUNTER 2022-07-26 10:23 | Emergency (ER) | payer MEDICARE, SELFPAY ==
[2022-07-26] VITALS (12 sets, daily range): BP systolic 100–169; BP diastolic 58–70; PULSE 79–94; RESP 16–20; TEMP 36.8; O2SAT 95–100
--- NOTE | ~2022-07-26 | CT_ITS ---
EXAMINATION: CT abdomen pelvis wo con DATE: 07/26/2022 13:06 INDICATION: Left sided abdominal pain TECHNIQUE: Computed tomography (CT) of the abdomen and pelvis was performed without intravenous contr ast. The dose-length product (DLP) was 1395.16 mGy-cm. Automated exposure control and iterative recon struction technique were employed. COMPARISON: None FINDINGS: The lung bases are clear. The heart size is normal. Calcified coronary artery atheroscleros is is noted. The liver, pancreas, gallbladder, and adrenal glands are normal. Punctate calcifications in an otherwise normal spleen likely represent healed granulomatous disease. The kidneys are unremar kable. There is calcified atherosclerosis of the aorta and many of the other arteries. No pathologica lly enlarged abdominal or pelvic lymph nodes are identified. There is mild distention of the urinary bladder. A moderate volume of colonic stool is present. Colonic diverticulosis is present without ev idence of diverticulitis. There is severe lumbar spondylosis. IMPRESSION: 1. Moderate distention of the urinary bladder. 2. Diverticulosis without evidence of diverticulitis. Reviewed, dictated and finalized at location B.
--- NOTE | ~2022-07-26 | XR_ITS ---
EXAMINATION: XR chest 2V DATE: 07/26/2022 11:26 INDICATION: Cough and shortness of breath TECHNIQUE: AP and lateral views of the chest are obtained. COMPARISON: 12/31/2021 FINDINGS: The lungs are free of acute opacities. No pleural effusion or pneumothorax. The cardiomedia stinal silhouette is normal. There is mild thoracic spondylosis. IMPRESSION: 1. No acute cardiopulmonary abnormality. Reviewed, dictated and finalized at location B.
--- NOTE | 2022-07-26 10:30 | PC.NURSE ---
pt having conversation on cell phone without difficulty.
--- NOTE | 2022-07-26 10:53 | ECG_ITS ---
Measurements Intervals [place] Rate: 86 P: -34 RI: 184 QRS: 51 QRSD: 97 T: 50 QT: 374 QTc: 449 Interpretive Statements SINUS RHYTHM NONSPECIFIC T-WAVE ABNORMALITY ABNORMAL ECG COMPARED TO ECG 12/31/2021 09:02:41 T-WAVE ABNORMALITY NOW PRESENT Electronically Signed On 07-26-2022 13:53:17 CDT by Joesph Pierce M.D.
--- NOTE | 2022-07-26 11:00 | PC.NURSE ---
Report received from Edwin ALEJANDRA at this time
--- NOTE | 2022-07-26 11:08 | ED.URI ---
HPI - URI/Sore Throat General Chief Complaint: Upper Respiratory Infection Stated Complaint: sick since sunday Time Seen by Provider: 07/26/22 10:42 Source: patient Mode of arrival: ambulatory Limitations: no limitations History of Present Illness HPI Narrative: Patient is a 71-year-old male who presents the ED with report of upper respiratory symptoms. Patient reports he has been sick since last Sunday with upper respiratory symptoms, including a dry cough, fatigue, subjective fever, shortness of breath, intermittent abdominal pain. He has a history of end-stage renal disease and receives dialysis Sunday. His microbiology technician is Dr. Dunaway. He notes he missed his dialysis appointments last Sunday and on Sunday due to feeling sick. He did receive 2 hours of his treatment today, but states it was stopped due to being short of breath. Patient was then referred to the ED for further evaluation. Patient denies any chest pain, wheezing, nausea, vomiting, diarrhea, constipation, urinary issues. He does still make urine. Related Data Home Medications Medication Instructions Recorded Confirmed carvedilol 25 mg tablet 25 mg PO BID 06/05/19 12/31/21 citalopram 40 mg tablet 40 mg PO DAILY 06/05/19 12/31/21 lisinopril 5 mg tablet 5 mg PO DAILY 06/05/19 12/31/21 cholecalciferol (vitamin D3) 1,250 50,000 unit PO 2XW 06/07/19 12/31/21 mcg (50,000 unit) tablet lovastatin 40 mg tablet 40 mg PO HS 06/07/19 12/31/21 quetiapine 100 mg tablet 200 mg PO DAILY 06/07/19 12/31/21 clonazepam 1 mg tablet 1 mg PO BID PRN Anxiety 01/01/20 12/31/21 fenofibrate micronized 200 mg 160 mg PO DAILY 01/01/20 12/31/21 capsule gabapentin 300 mg capsule 600 mg PO TID 04/05/20 12/31/21 omega-3 fatty acids 1,000 mg 3,000 mg PO BID 04/05/20 12/31/21 capsule (Fish Oil Concentrate) acetaminophen 650 mg tablet 650 mg PO Q6H PRN Pain 12/31/21 12/31/21 albuterol sulfate 90 mcg/actuation 2 puff inhalation PRN PRN 12/31/21 12/31/21 aerosol inhaler Shortness Of Breath Or Wheezing allopurinol 100 mg tablet 100 mg PO DAILY 12/31/21 12/31/21 (Zyloprim) amitriptyline 100 mg tablet 100 mg PO DAILY 12/31/21 12/31/21 furosemide 40 mg tablet 40 mg PO DAILY 12/31/21 12/31/21 insulin aspar prt-insulin aspart 70 unit subcut BID 12/31/21 12/31/21 100 unit/mL (70-30) subcutaneous soln loperamide 2 mg tablet (Imodium 2 mg PO Q6H PRN Diarrhea 12/31/21 12/31/21 A-D) melatonin 5 mg tablet 5 mg PO HS PRN Insomnia 12/31/21 12/31/21 metolazone 5 mg tablet 5 mg PO DAILY 12/31/21 12/31/21 sucroferric oxyhydroxide 500 mg 1,000 mg PO TID 12/31/21 12/31/21 chewable tablet (Velphoro) Allergies Allergy/AdvReac Type Severity Reaction Status Date / Time No Known Allergies Allergy Verified 04/08/22 07:43 Review of Systems Review of Systems: CONSTITUTIONAL: Reports subjective fever. ENT: See HPI. CARDIOVASCULAR: See HPI. RESPIRATORY: See HPI. GASTROINTESTINAL: See HPI. GENITOURINARY: Denies dysuria or hematuria. SKIN: Denies rash or itching. MUSCULOSKELETAL: Denies back pain, joint pain, or myalgia. NEUROLOGIC: Denies headache, numbness, or weakness. All systems reviewed & are unremarkable except as noted in HPI and below PMFSH Past Medical History Medical History Chronic obstructive pulmonary disease Congestive heart failure End-stage renal disease on hemodialysis Sunday, Sunday, Sunday. Hyperlipidemia Hypertension Insulin dependent type 2 diabetes mellitus Obstructive sleep apnea on CPAP Pancreatitis Surgical History Surgical History History of bilateral cataract extraction History of fusion of cervical spine Family History Family History Mother Family history of congestive heart failure Hypertension Family history of mental disorder Diabetes mellitus Depressi
[2022-07-26 11:20] LABS: Basophils Percent Auto 0.5 % (0.2-1.2); Eosinophils Absolute Auto 0.2 K/mm3 (0-0.3); Eosinophils Percent Auto 3.7 % (0-4.4); Hematocrit 31.1 % (42.0-52.0); Hemoglobin 10.6 g/dL (14.0-18.0); Immature Granulocyte Absolute 0.02 K/mm3 (0.00-0.031); Immature Granulocyte Percent A 0.3 % (0-0.5); Lymphocytes Absolute Auto 1.43 K/mm3 (0.9-3.2); Lymphocytes Percent Auto 24.3 % (18.3-44.2); Mean Corpuscular HGB Conc 34.1 g/dl (32-36); Mean Corpuscular Hemoglobin 30.8 pg (26-34); Mean Corpuscular Volume 90.4 fl (80-100); Mean Platelet Volume 10.4 fl (7.4-10.4); Monocytes Absolute Auto 0.5 K/mm3 (0.1-0.6); Monocytes Percent Auto 8.5 % (2.6-8.5); Neutrophils Absolute Auto 3.7 K/mm3 (1.3-6.7); Neutrophils Percent Auto 62.7 % (45.5-73.1); Platelet Count Result 184 k/mm3 (150-375); Red Blood Count 3.44 M/mm3 (4.6-6.20); Red Cell Distribution Width 13.8 % (11.5-14.5); White Blood Count 5.9 K/mm3 (4.5-10.0)
[2022-07-26 11:31] LABS: Alanine Aminotransferase 29 U/L (6-50); Albumin Level 4.9 g/dL (3.5-5.1); Alkaline Phosphatase 50 U/L (38-126); Anion Gap 11 mmol/L (8-16); Aspartate Amino Transferase 46 U/L (17-59); Bilirubin,Total 0.9 mg/dL (0.2-1.3); Blood Urea Nitrogen 68 mg/dL (9-20); Calcium 9.3 mg/dL (8.4-10.2); Carbon Dioxide 28 mmol/L (22-30); Chloride 93 mmol/L (98-107); Estimated CRCL calculation 25 ml/min; Estimated Glomerular Filt Rate 19; Glucose 160 mg/dL (65-110); Sodium 132 mmol/L (137-145)
[2022-07-26 11:34] LABS: Influenza A QL RT-PCR Negative (Negative); Influenza B QL RT-PCR Negative (Negative); SARS-CoV-2 RNA PCR Negative
[2022-07-26 12:42] LABS: NT Pro B Type Natriuretic Pept 361 pg/mL (19.9-100)
[2022-07-26 12:46] LABS: D Dimer 0.67 ug/mL (<0.48); Troponin I 0.021 ng/mL (0.000-0.034)
--- NOTE | 2022-07-26 15:59 | PC.NURSE ---
Pt came walking with walker out of room to be d/c and requesting IVP to be taking out.
== END 2022-07-26 16:00 | disposition home or self-care (01) ==
PROVIDERS: Emergency Provider Physician Assistant; PCP Internal Medicine
DX: R30.0 Dysuria (principal); N18.6 End stage renal disease; J06.9 Acute upper respiratory infection, unspecified; Z20.822 Contact with and (suspected) exposure to COVID-19; E11.22 Type 2 diabetes mellitus with diabetic chronic kidney disease; I13.2 Hypertensive heart and chronic kidney disease with heart failure and with stage 5 chronic kidney disease, or end stage renal disease; I50.9 Heart failure, unspecified; J44.9 Chronic obstructive pulmonary disease, unspecified; Z99.2 Dependence on renal dialysis; E78.5 Hyperlipidemia, unspecified; G47.33 Obstructive sleep apnea (adult) (pediatric); Z98.42 Cataract extraction status, left eye; Z98.41 Cataract extraction status, right eye; Z98.1 Arthrodesis status; Z87.891 Personal history of nicotine dependence; Z79.4 Long term (current) use of insulin; K57.90 Diverticulosis of intestine, part unspecified, without perforation or abscess without bleeding
CPT/HCPCS: 36415; 71046; 74176; 80053; 83880; 84484; 85025; 85380; 87636; 93005; 99284

== ENCOUNTER 2022-09-18 08:03 | Inpatient (IN) | payer MEDICARE, SELFPAY ==
[2022-09-18] VITALS (27 sets, daily range): BP systolic 80–182; BP diastolic 52–93; PULSE 74–90; RESP 12–22; TEMP 35.8–36.8; O2SAT 96–100
--- NOTE | ~2022-09-18 | XR_ITS ---
EXAMINATION: XR chest 2V DATE: 09/18/2022 08:42 INDICATION: Mid chest pain. Shortness of breath. TECHNIQUE: Frontal and lateral views of the chest were obtained. COMPARISON: Chest 2 views 07/26/2022, 12/31/2021, CT abdomen and pelvis 07/26/2022 FINDINGS: There are airspace opacities in left perihilar region and left lower lung zone. No pleural effusion or pneumothorax. The heart size is normal. IMPRESSION: 1. Airspace opacities in left perihilar region and left lower lung zone, consistent with atelectasis versus pneumonia. Reviewed, dictated and finalized at location A. IMPRESSION: 1. Airspace opacities in left perihilar region and left lower lung zone, consis tent with atelectasis versus pneumonia.
--- NOTE | ~2022-09-18 | US_ITS ---
EXAMINATION: US venous doppler [facility] DATE: 09/19/2022 16:01 INDICATION: Chest pain and bilateral lower limb swelling and erythema TECHNIQUE: Grayscale ultrasound images without and with compression and Doppler ultrasound images of the bilateral lower extremity veins were obtained. COMPARISON: None. FINDINGS: The visualized portions of right common femoral vein, profunda (deep) femoral vein, femoral vein, pop liteal vein, posterior tibial veins, peroneal veins, gastrocnemius vein and greater saphenous vein ou tflow are patent. The visualized portions of left common femoral vein, profunda femoral vein, femoral vein, popliteal v ein, posterior tibial veins, peroneal veins, gastrocnemius vein and greater saphenous vein outflow ar e patent. IMPRESSION: 1. No deep venous thrombosis in either lower limb. Reviewed, dictated and finalized at location A.
--- NOTE | 2022-09-18 08:09 | ECG_ITS ---
Measurements Intervals [place] Rate: 78 P: 83 MI: 218 QRS: 55 QRSD: 105 T: 42 QT: 396 QTc: 452 Interpretive Statements SINUS RHYTHM WITH FIRST DEGREE AV BLOCK NONSPECIFIC ST & T-WAVE ABNORMALITY- INF/LAT LEADS BASELINE ARTIFACT- I, III, AVL BORDERLINE ECG COMPARED TO ECG 07/26/2022 11:11:46 FIRST DEGREE AV BLOCK NOW PRESENT Electronically Signed On 09-18-2022 13:48:33 CDT by Behzad Thomas D.O.
[2022-09-18 08:26] LABS: Basophils Absolute Auto 0.1 K/mm3 (0.0-0.1); Basophils Percent Auto 0.7 % (0.2-1.2); Eosinophils Absolute Auto 0.2 K/mm3 (0-0.3); Eosinophils Percent Auto 2.3 % (0-4.4); Hematocrit 32.6 % (42.0-52.0); Hemoglobin 10.5 g/dL (14.0-18.0); Immature Granulocyte Absolute 0.02 K/mm3 (0.00-0.031); Immature Granulocyte Percent A 0.3 % (0-0.5); Lymphocytes Absolute Auto 1.26 K/mm3 (0.9-3.2); Lymphocytes Percent Auto 16.8 % (18.3-44.2); Mean Corpuscular HGB Conc 32.2 g/dl (32-36); Mean Corpuscular Hemoglobin 30.8 pg (26-34); Mean Corpuscular Volume 95.6 fl (80-100); Mean Platelet Volume 10.4 fl (7.4-10.4); Monocytes Absolute Auto 0.7 K/mm3 (0.1-0.6); Monocytes Percent Auto 9.2 % (2.6-8.5); Neutrophils Absolute Auto 5.3 K/mm3 (1.3-6.7); Neutrophils Percent Auto 70.7 % (45.5-73.1); Platelet Count Result 174 k/mm3 (150-375); Red Blood Count 3.41 M/mm3 (4.6-6.20); Red Cell Distribution Width 15.2 % (11.5-14.5); White Blood Count 7.5 K/mm3 (4.5-10.0)
--- NOTE | 2022-09-18 08:33 | PC.NURSE ---
Pt to XRAY via stretcher at this time, remains on 2 L NC O2.
[2022-09-18 08:38] LABS: Alanine Aminotransferase 31 U/L (6-50); Albumin Level 4.5 g/dL (3.5-5.1); Alkaline Phosphatase 86 U/L (38-126); Anion Gap 13 mmol/L (8-16); Aspartate Amino Transferase 25 U/L (17-59); Bilirubin,Total 0.4 mg/dL (0.2-1.3); Blood Urea Nitrogen 72 mg/dL (9-20); Calcium 9.4 mg/dL (8.4-10.2); Carbon Dioxide 27 mmol/L (22-30); Chloride 90 mmol/L (98-107); Estimated CRCL calculation 18 ml/min; Estimated Glomerular Filt Rate 13; Glucose 462 mg/dL (65-110); Lipase 139 U/L (23-300); Potassium 4.4 mmol/L (3.4-5.0); Sodium 130 mmol/L (137-145)
[2022-09-18 08:41] LABS: Prothrombin Time 13.2 Seconds (11.1-14.7)
[2022-09-18 08:42] LABS: Partial Thromboplastin Time 35.9 SECONDS (22.3-36.8)
[2022-09-18 08:47] LABS: NT Pro B Type Natriuretic Pept 707 pg/mL (19.9-100)
[2022-09-18 08:50] LABS: Troponin I 0.017 ng/mL (0.000-0.034)
--- NOTE | 2022-09-18 09:04 | ED.CHESTPAIN ---
HPI - Chest Pain General Chief Complaint: Chest Pain Stated Complaint: chest pain Time Seen by Provider: 09/18/22 08:42 Source: patient and EMS Mode of arrival: EMS Related Data Home Medications Medication Instructions Recorded Confirmed carvedilol 25 mg tablet 25 mg PO BID 06/05/19 12/31/21 citalopram 40 mg tablet 40 mg PO DAILY 06/05/19 12/31/21 lisinopril 5 mg tablet 5 mg PO DAILY 06/05/19 12/31/21 cholecalciferol (vitamin D3) 1,250 50,000 unit PO 2XW 06/07/19 12/31/21 mcg (50,000 unit) tablet lovastatin 40 mg tablet 40 mg PO HS 06/07/19 12/31/21 quetiapine 100 mg tablet 200 mg PO DAILY 06/07/19 12/31/21 clonazepam 1 mg tablet 1 mg PO BID PRN Anxiety 01/01/20 12/31/21 fenofibrate micronized 200 mg 160 mg PO DAILY 01/01/20 12/31/21 capsule gabapentin 300 mg capsule 600 mg PO TID 04/05/20 12/31/21 omega-3 fatty acids 1,000 mg 3,000 mg PO BID 04/05/20 12/31/21 capsule (Fish Oil Concentrate) acetaminophen 650 mg tablet 650 mg PO Q6H PRN Pain 12/31/21 12/31/21 albuterol sulfate 90 mcg/actuation 2 puff inhalation PRN PRN 12/31/21 12/31/21 aerosol inhaler Shortness Of Breath Or Wheezing allopurinol 100 mg tablet 100 mg PO DAILY 12/31/21 12/31/21 (Zyloprim) amitriptyline 100 mg tablet 100 mg PO DAILY 12/31/21 12/31/21 furosemide 40 mg tablet 40 mg PO DAILY 12/31/21 12/31/21 insulin aspar prt-insulin aspart 70 unit subcut BID 12/31/21 12/31/21 100 unit/mL (70-30) subcutaneous soln loperamide 2 mg tablet (Imodium 2 mg PO Q6H PRN Diarrhea 12/31/21 12/31/21 A-D) melatonin 5 mg tablet 5 mg PO HS PRN Insomnia 12/31/21 12/31/21 metolazone 5 mg tablet 5 mg PO DAILY 12/31/21 12/31/21 sucroferric oxyhydroxide 500 mg 1,000 mg PO TID 12/31/21 12/31/21 chewable tablet (Velphoro) donepezil 10 mg tablet (Aricept) mg 09/18/22 Allergies Allergy/AdvReac Type Severity Reaction Status Date / Time No Known Allergies Allergy Verified 09/18/22 08:13 [facility] Past Medical History Medical History Chronic obstructive pulmonary disease Congestive heart failure End-stage renal disease on hemodialysis Sunday, Sunday, Sunday. Hyperlipidemia Hypertension Insulin dependent type 2 diabetes mellitus Obstructive sleep apnea on CPAP Pancreatitis Surgical History Surgical History History of bilateral cataract extraction History of fusion of cervical spine Family History Family History Mother Family history of congestive heart failure Hypertension Family history of mental disorder Diabetes mellitus Depression Family history of cardiovascular disease Father Family history of lung cancer Family history of mental disorder Depression Social History Social History Social History: Surrogate medical decision maker: Katlin Freitas, daughter. Code status: Full code. Smoking status: Former smoker Additional smoking assessment comments: Quit greater than 30 years ago. Alcohol intake: never Substance use: never Additional living arrangements comments: Lives alone [address]. 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 Spiritual care concerns: No Course Consultations Consultation #1: axel Date: 09/18/22 Time: 09:54 Vital Signs Vital signs: Vital Signs Temperature 36.4 C L 09/18/22 08:04 Pulse Rate 82 09/18/22 08:04 Respiratory Rate 12 09/18/22 08:04 Blood Pressure 142/52 H 09/18/22 08:04 Pulse Oximetry 100 09/18/22 08:04 Oxygen Delivery Room Air 09/18/22 08:04 Temperature 36.4 C L 09/18/22 08:04 Pulse Rate 78 09/18/22 09:22 Respiratory Rate 15 09/18/22 09:22 Blood Pressure 154/70 H 09/18/22 09:22 Pulse Oximetry 100 09/18/22 09:22 Oxygen Delivery Nasal Cannula 09/18/22 08:25 Oxygen F
[2022-09-18] MEDS: levoFLOXacin 750 MG/D5W 150 ML 750 MG/150 ML BAG 100 MG IVPB (09:24)
--- NOTE | 2022-09-18 10:50 | PC.NURSE ---
This patient, Jamie Fajardo, was admitted to IMU Room 202-. Patient/family oriented to hospital policies and general routines including ID bracelet, bed and alarms, visiting hours, pain management, procedures, bathroom and other care routines, personal items, smoking policy, room service/diet, and visiting hours. Information on how to activate the Rapid Response Team has been discussed. Patient/Family are encouraged to report perceived risks to care and to ask questions if they do not understand what they are told or what they should do.
[2022-09-18 11:58] LABS: Glucose Point of Care 451 mg/dl (65-105)
[2022-09-18 12:10] LABS: Troponin I 0.014 ng/mL (0.000-0.034)
[2022-09-18] MEDS: LEVALBUTEROL NEB 1.25 MG/3 ML 0.63 MG INHALATION (13:50)
--- NOTE | 2022-09-18 14:09 | P.CONNP_ITS ---
Assessment and Plan Assessment and plan (1) End-stage renal disease on hemodialysis: Code(s): N18.6 - End stage renal disease; Z99.2 - Dependence on renal dialysis Status: Chronic Assessment and Plan: * HD today * continue M/W/F dialysis schedule * follow electrolytes, volume status, and clearance * normally follows with Dr. Dunaway at [facility] (2) Chest pain: Qualifiers: Chest pain type: unspecified Qualified Code(s): R07.9 - Chest pain, unspecified Code(s): R07.9 - Chest pain, unspecified Status: Acute Assessment and Plan: * EKG and troponins negative * sounds pleuritic in nature by history * no chest pain at this time * continue supportive therapy (3) Pneumonia: Qualifiers: Laterality: left Lung location: lower lobe of lung Pneumonia type: due to unspecified organism Qualified Code(s): J18.9 - Pneumonia, unspecified organism Code(s): J18.9 - Pneumonia, unspecified organism Status: Acute Assessment and Plan: * blood culture pending * on antibiotics * continue PRN nebulizeer treatments (4) Congestive heart failure: Code(s): I50.9 - Heart failure, unspecified Status: Acute Assessment and Plan: * appears compensated at this time * fluid removal with dialysis to maintain euolemia * still makes urine -- continues lasix and metolazone (5) Hypertension: Code(s): I10 - Essential (primary) hypertension Status: Acute Assessment and Plan: * reasonable control at this time * follow trend of hemodynamics (6) Insulin dependent type 2 diabetes mellitus: Code(s): E11.9 - Type 2 diabetes mellitus without complications; Z79.4 - 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 Thank you for allowing me to participate in the care of this patient. History of Present Illness Reason for Consult Consult date: 09/18/22 Reason for consult: end stage renal disease Chief Complaint Chief complaint: Chest Pain,Pneumonia,Dialysis Patient History of Present Illness Narrative: The patient is a 71-year-old male with an extensive past medical history as outlined below who presented to [facility] Emergency room for further evaluation of chest pain. The patient presented to his outpatient dialysis center for his regularly s cheduled dialysis treatment but when he reported them that he was having chest pain, they transferred him to the emergency room for further assessment. Apparently, according to the patient, he has been having intermittent left sided chest pain all evening and into this morning. He described the chest pain as a sharp stabbing sensation particularly exacerbated with breathing/taking a deep breath certain movements. These chest pains apparently started to a.m. and have been going on up until his presentation to the dialysis center as well as the ER. Workup and evaluation emergency room demonstrated the patient to be hemodynamically stable and in mild distress secondary to the chest pain. R outine blood tests demonstrated labs consistent with his known history of end- stage renal disease but with no critical electrolyte abnormalities and a normal CBC. his EKG showed a normal sinus rhythm with no ischemic changes and his chest x-ray showed a possible pneumonia. It was felt
--- NOTE | 2022-09-18 14:09 | PM.CNNEP ---
Assessment and Plan Assessment and plan (1) End-stage renal disease on hemodialysis: Code(s): N18.6 - End stage renal disease; Z99.2 - Dependence on renal dialysis Status: Chronic Assessment and Plan: HD today continue M/W/F dialysis schedule follow electrolytes, volume status, and clearance normally follows with Dr. Dunaway at [facility] (2) Chest pain: Qualifiers: Chest pain type: unspecified Qualified Code(s): R07.9 - Chest pain, unspecified Code(s): R07.9 - Chest pain, unspecified Status: Acute Assessment and Plan: EKG and troponins negative sounds pleuritic in nature by history no chest pain at this time continue supportive therapy (3) Pneumonia: Qualifiers: Laterality: left Lung location: lower lobe of lung Pneumonia type: due to unspecified organism Qualified Code(s): J18.9 - Pneumonia, unspecified organism Code(s): J18.9 - Pneumonia, unspecified organism Status: Acute Assessment and Plan: blood culture pending on antibiotics continue PRN nebulizeer treatments (4) Congestive heart failure: Code(s): I50.9 - Heart failure, unspecified Status: Acute Assessment and Plan: appears compensated at this time fluid removal with dialysis to maintain euolemia still makes urine -- continues lasix and metolazone (5) Hypertension: Code(s): I10 - Essential (primary) hypertension Status: Acute Assessment and Plan: reasonable control at this time follow trend of hemodynamics (6) Insulin dependent type 2 diabetes mellitus: Code(s): E11.9 - Type 2 diabetes mellitus without complications; Z79.4 - half-way (current) use of insulin Status: Acute Assessment and Plan: follow accu-cheks glycemic control per hospitalists I will continue to follow the patient with you while he remains hospitalized to make further recommendations during his hospital course. Thank you for allowing me to participate in the care of this patient. History of Present Illness Reason for Consult Consult date: 09/18/22 Reason for consult: end stage renal disease Chief Complaint Chief complaint: Chest Pain,Pneumonia,Dialysis Patient History of Present Illness Narrative: The patient is a 71-year-old male with an extensive past medical history as outlined below who presented to [facility] Emergency room for further evaluation of chest pain. The patient presented to his outpatient dialysis center for his regularly scheduled dialysis treatment but when he reported them that he was having chest pain, they transferred him to the emergency room for further assessment. Apparently, according to the patient, he has been having intermittent left sided chest pain all evening and into this morning. He described the chest pain as a sharp stabbing sensation particularly exacerbated with breathing/taking a deep breath certain movements. These chest pains apparently started to a.m. and have been going on up until his presentation to the dialysis center as well as the ER. Workup and evaluation emergency room demonstrated the patient to be hemodynamically stable and in mild distress secondary to the chest pain. Routine blood tests demonstrated labs consistent with his known history of end-stage renal disease but with no critical electrolyte abnormalities and a normal CBC. his EKG showed a normal sinus rhythm with no ischemic changes and his chest x-ray showed a possible pneumonia. It was felt that his chest pain was more related to pleurisy and possibly the aforementioned pneumonia on chest x-ray. After appropriate cultures were obtained, he was started on IV antibiotic therapy and subsequent admitted to the hospital further evaluation and therapy Renal consultation was requested due to his end-stage renal disease. The patient normally dialyzes on a Sunday, Sunday, Sunday di
--- NOTE | 2022-09-18 14:33 | PM.IMHP ---
H&P: HPI History of Present Illness Date/Time: 09/18/22 14:33 Chief Complaint: Chest pain Narrative: this is a 71-year-old male patient who has end-stage renal disease. The patient has dialysis on Sunday. 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 Dunaway . The patient stated that he went to dialysis this morning and started to have some chest discomfort that started at 2:00 a.m. this morning Prior to going to dialysis. He is currently pain-free. He did not start dialysis as was sent to the hospital. Nephrology was consulted here. I was seeing the patient in hemodialysis. His sodium was 130. Chloride 90. creatinine 4.6. GFR is 13 blood glucose is 462. Troponins are negative X3. Chest x-ray was read as airspace opacities in the left perihilar region with left lower lung zones consistent with atelectasis versus pneumonia. The patient was started on Levaquin, IV fluids, insulin, and Benadryl. The patient is being admitted to observation status on the date of service of 09/18/2022. Review of Systems Review of Systems: All systems reviewed & are unremarkable except as noted in HPI and below Constitutional: Constitutional: Reports as per HPI and Reports no additional constitutional complaints Eyes: Eyes: Reports as per HPI and Reports no additional eye complaints ENT: Reports system reviewed and no additional complaints, except as documented and Reports Normal hearing present Cardiovascular: Cardiovascular: Reports no additional cardiovascular complaints Respiratory: Respiratory: Reports no additional respiratory complaints and Reports no additional respiratory complaints Gastrointestinal: Gastrointestinal: Reports as per HPI and Reports no additional gastrointestinal complaints Musculoskeletal: Musculoskeletal: Reports no additional musculoskeletal complaints Integumentary/Breasts: Skin/Breast: Reports system reviewed and no additional complaints, except as docu and Reports as per HPI Neurologic: Reports system reviewed and no additional complaints, except as documented, Reports as per HPI and Reports Normal hearing present Psychiatric: Psychiatric: Reports no additional psychiatric complaints and Reports as per HPI Endocrine: Endocrine: Reports no additional endocrine complaints Hematologic/Lymphatic: Hematologic/Lymphatic: Reports no additional hematologic/lymphatic complaints Allergic/Immunologic: Allergic/Immunologic: Reports no additional allergic/immunologic complaints PMFSH Past Medical History Medical History Chronic obstructive pulmonary disease Congestive heart failure End-stage renal disease on hemodialysis Sunday, Sunday, Sunday. Hyperlipidemia Hypertension Insulin dependent type 2 diabetes mellitus Obstructive sleep apnea on CPAP Pancreatitis Surgical History Surgical History History of bilateral cataract extraction History of fusion of cervical spine Family History Family History Mother Family history of congestive heart failure Hypertension Family history of mental disorder Diabetes mellitus Depression Family history of cardiovascular disease Father Family history of lung cancer Family history of mental disorder Depression Social History Social History (Updated 09/18/22 @ 19:03 by Katherine Frazier NP) Social History: 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 He is . He has 2 daughters Surrogate medical decision maker: Katlin Fortino, daughter. Code status: Full code. Smoking status: Former smoker Additional smoking assessment comments: Quit greater than 30 years ago. Alcohol intake: never Substance use: never Lack of Transportation: No Lack of Food: Never True Current Housing: I Have Housing Concerned About Future Housing: No Difficulty Paying Gas/Electric Bills: No Difficulty P
[2022-09-18] MEDS: diphenhydrAMINE HCl INJ 50 MG/ML VIAL 25 MG IV PUSH (14:48)
[2022-09-18 16:13] LABS: Troponin I 0.012 ng/mL (0.000-0.034)
[2022-09-18 16:32] LABS: Hepatitis B Surface Antigen Negative (Negative)
[2022-09-18 16:51] LABS: Hepatitis B Surface Anti Res Positive
[2022-09-18 19:51] LABS: Glucose Point of Care 378 mg/dl (65-105)
[2022-09-18] MEDS: LEVALBUTEROL NEB 1.25 MG/3 ML INHALATION (20:37)
[2022-09-18] MEDS: IPRATROPIUM BR 0.02% INH SOLN 0.5 MG/2.5 ML VIAL INHALATION (20:38)
[2022-09-18] MEDS: CITALOPRAM HYDROBROMIDE 20 MG TABLET 40 MG PO (21:16)
[2022-09-18] MEDS: AMITRIPTYLINE HCL 25 MG TABLET 100 MG PO (21:17)
[2022-09-18] MEDS: clonazePAM (*CRX) 0.5 MG TABLET 1 MG PO (21:18)
[2022-09-18] MEDS: FUROSEMIDE 40 MG TABLET PO (21:19)
[2022-09-18] MEDS: GABAPENTIN 300 MG CAPSULE 1200 MG PO (21:19)
[2022-09-18] MEDS: LOVASTATIN 20 MG TABLET 40 MG PO (21:19)
[2022-09-18] MEDS: QUEtiapine FUMARATE 100 MG TABLET 200 MG PO (21:21)
[2022-09-18] MEDS: INSULIN ASPART (*BKC) 100 UNITS/ML SUB-Q (21:22)
[2022-09-19] VITALS (26 sets, daily range): BP systolic 110–144; BP diastolic 51–99; PULSE 74–100; RESP 20–25; TEMP 35.9–36.6; O2SAT 94–100
--- NOTE | 2022-09-19 | ECHO_ITS ---
Patient Info Name: Jamie Fajardo Age: 71 years : 1950 Gender: Male Ht: 68 in Wt: 270 lbs BSA: 2.48 m2 HR: 82 bpm BP: 123 / 99 mmHg Heart Rhythm: Sinus Rhythm Technical Quality: Fair Exam Date: 09/19/2022 9:03 AM Exam Location: [facility] Pulmonary Patient Status: Outpatient Admit Date: 09/18/2022 Staff Ordering Physician: Katherine Frazier NP Endocrinology Physician: Nell Driscoll RDCS Attending Provider: La Escobar MD Referring Physician: Karin SALDANA; Exam Type: CA echo doppler color flow Study Info Indications - CHF Complete two-dimensional, color flow and Doppler transthoracic echocardiogram is performed. Summary 1. Complete two-dimensional, color flow and Doppler transthoracic echocardiogram is performed. 2. Left ventricular chamber dimension is normal. 3. Left ventricular systolic function is normal, estimated at 60-65%. 4. There is mildly increased left ventricular wall thickness. 5. The left ventricular diastolic function is grade I diastolic dysfunction. 6. Right ventricular systolic function is normal. 7. There is trace mitral valve regurgitation. 8. There is trace tricuspid valve regurgitation. Left Ventricle Left ventricular chamber dimension is normal. Left ventricular systolic function is normal, estimated at 60-65%. There is mildly increased left ventricular wall thickness. The left ventricular diastolic function is grade I diastolic dysfunction. Right Ventricle Right ventricular chamber dimension is normal. Right ventricular systolic function is normal. Left Atria Left atrial chamber dimension is normal. Right Atria Right atrial chamber dimension is normal. Atrial Septum Intact interatrial septum visualized by color flow imaging. Aortic Valve The aortic valve is not well visualized. There is no aortic valve stenosis. There is no aortic valve regurgitation. There is mild aortic valve calcification. Pulmonic Valve The pulmonic valve is not well visualized. Mitral Valve There is trace mitral valve regurgitation. The mitral valve annulus is mildly calcified. Tricuspid Valve There is trace tricuspid valve regurgitation. Pericardium/Pleural There is trivial pericardial effusion. Inferior Vena Cava Normal inferior vena cava with >50% collapse upon inspiration consistent with normal right atrial pressure, 3 mmHg. Aorta The aortic root size at the sinus of Valsalva is normal. Left Ventricular Outflow Tract Name Value Normal LVOT 2D LVOT Diameter 2.1 cm LVOT Doppler LVOT Peak Gradient 7 mmHg LVOT Mean Gradient 4 mmHg LVOT VTI 24 cm LVOT VTI/AV VTI Ratio 0.6 LVOT Stroke Volume 82 ml LVOT CO 12.2 l/min LVOT CI 4.9 l/min/m2 Pulmonic Valve Name Value Normal RVOT Doppler RVOT Peak Gradient
[2022-09-19] MEDS: IPRATROPIUM BR 0.02% INH SOLN 0.5 MG/2.5 ML VIAL INHALATION ×4 (02:50→20:46)
[2022-09-19] MEDS: LEVALBUTEROL NEB 1.25 MG/3 ML INHALATION ×4 (02:51→20:46)
[2022-09-19 04:54] LABS: Basophils Percent Auto 0.6 % (0.2-1.2); Eosinophils Absolute Auto 0.2 K/mm3 (0-0.3); Eosinophils Percent Auto 2.5 % (0-4.4); Hematocrit 30.1 % (42.0-52.0); Hemoglobin 9.7 g/dL (14.0-18.0); Immature Granulocyte Absolute 0.03 K/mm3 (0.00-0.031); Immature Granulocyte Percent A 0.4 % (0-0.5); Lymphocytes Absolute Auto 1.57 K/mm3 (0.9-3.2); Lymphocytes Percent Auto 21.9 % (18.3-44.2); Mean Corpuscular HGB Conc 32.2 g/dl (32-36); Mean Corpuscular Hemoglobin 29.8 pg (26-34); Mean Corpuscular Volume 92.3 fl (80-100); Mean Platelet Volume 10.1 fl (7.4-10.4); Monocytes Absolute Auto 0.9 K/mm3 (0.1-0.6); Monocytes Percent Auto 12.1 % (2.6-8.5); Neutrophils Absolute Auto 4.5 K/mm3 (1.3-6.7); Neutrophils Percent Auto 62.5 % (45.5-73.1); Platelet Count Result 169 k/mm3 (150-375); Red Blood Count 3.26 M/mm3 (4.6-6.20); Red Cell Distribution Width 13.4 % (11.5-14.5); White Blood Count 7.2 K/mm3 (4.5-10.0)
[2022-09-19 05:04] LABS: Alanine Aminotransferase 27 U/L (6-50); Albumin Level 4.2 g/dL (3.5-5.1); Alkaline Phosphatase 56 U/L (38-126); Anion Gap 13 mmol/L (8-16); Aspartate Amino Transferase 21 U/L (17-59); Bilirubin,Total 0.5 mg/dL (0.2-1.3); Blood Urea Nitrogen 52 mg/dL (9-20); Calcium 8.6 mg/dL (8.4-10.2); Carbon Dioxide 31 mmol/L (22-30); Chloride 87 mmol/L (98-107); Estimated CRCL calculation 18 ml/min; Estimated Glomerular Filt Rate 14; Glucose 405 mg/dL (65-110); Magnesium 1.7 mg/dL (1.6-2.3); Potassium 4.1 mmol/L (3.4-5.0); Sodium 131 mmol/L (137-145)
[2022-09-19 05:29] LABS: Hemoglobin A1C 9.8 % (<5.7)
[2022-09-19 05:30] LABS: Thyroid Stimulating Hormone Reflex 0.941 uIU/mL (0.465-4.68)
[2022-09-19 06:05] LABS: Lactic Acid Reflex 2.3 mmol/L (0.7-2.0)
[2022-09-19 07:46] LABS: Reflex Lactic Acid Yes or No Add Lactic
--- NOTE | 2022-09-19 07:59 | PC.NURSE ---
BG 549. Dr. Bird made aware. New orders for 12 units of Novolog insulin now. Recheck BG 2 hours after meal.
[2022-09-19 08:03] LABS: Glucose Point of Care > 500 mg/dl (65-105)
[2022-09-19 08:19] LABS: Lactic Acid 1.4 mmol/L (0.7-2.0)
[2022-09-19 10:13] LABS: Glucose Point of Care > 500 mg/dl (65-105)
[2022-09-19] MEDS: INSULIN ASPART (*BKC) 100 UNITS/ML 12 UNITS SUB-Q ×2 (10:30→20:37)
[2022-09-19] MEDS: metOLazone 5 MG TABLET PO (10:31)
[2022-09-19] MEDS: GABAPENTIN 300 MG CAPSULE 600 MG PO (10:31)
[2022-09-19] MEDS: lisinopriL 5 MG TABLET PO (10:31)
[2022-09-19] MEDS: OMEGA 3 POLYUNSAT FATTY ACIDS 1 GM CAP PO ×2 (10:31→17:15)
[2022-09-19] MEDS: FENOFIBRATE 160 MG TABLET PO (10:32)
[2022-09-19] MEDS: allopurinoL 100 MG TABLET PO (10:32)
[2022-09-19] MEDS: INSULIN ASPART (*BKC) 100 UNITS/ML 10 UNITS SUB-Q (11:17)
[2022-09-19 11:29] LABS: Glucose Point of Care > 500 mg/dl (65-105)
[2022-09-19] MEDS: clonazePAM (*CRX) 0.5 MG TABLET 1 MG PO (11:50)
[2022-09-19] MEDS: INSULIN ASPART (*BKC) 100 UNITS/ML 8 UNITS SUB-Q ×2 (11:50→15:41)
[2022-09-19 14:17] LABS: Glucose Point of Care 459 mg/dl (65-105)
--- NOTE | 2022-09-19 14:37 | PM.IMPN ---
Progress Note: A&P Assessment and Plan (1) Pneumonia: Qualifiers: Laterality: left Lung location: lower lobe of lung Pneumonia type: due to unspecified organism Qualified Code(s): J18.9 - Pneumonia, unspecified organism Code(s): J18.9 - Pneumonia, unspecified organism Status: Acute Assessment and Plan: Chest x-ray on admission showing left perihilar and left lower lobe airspace disease consistent with pneumonia. Normal white count. No fevers. lactic elevated but did not meet criteria for sepsis. He was having left-sided pleuritic chest pain. He was started on Levaquin. Blood cultures have returned positive. He is on room air. Will adjust antibiotics. Follow-up on blood culture results. (2) Chest pain: Qualifiers: Chest pain type: unspecified Qualified Code(s): R07.9 - Chest pain, unspecified Code(s): R07.9 - Chest pain, unspecified Status: Acute Assessment and Plan: Patient complaints of pleuritic and positional left-sided chest pain. No fever. No elevated white count. He has a slight cough. A two-view chest x-ray showing airspace opacities in left perihilar region and left lower lung zone possibly pneumonia. EKG showed normal sinus rhythm with nonspecific ST-T wave changes. Troponin negative x3. Echocardiogram shows EF of 60-65% and grade 1 diastolic dysfunction. No obvious wall motion abnormalities. Suspect chest pain is related to pneumonia. Treatment as above. If condition does not improve, consider CTA to exclude PE although felt less likely given the positive blood cultures. (3) Bacteremia: Code(s): R78.81 - Bacteremia Status: Acute Assessment and Plan: One set of blood cultures growing Gram-positive cocci in clusters from a aerobic bottle only. Will add vancomycin. Change Levaquin to Rocephin and azithromycin. Follow-up on blood culture results. Repeat BCx tomorrow (4) Insulin dependent type 2 diabetes mellitus: Code(s): E11.9 - Type 2 diabetes mellitus without complications; Z79.4 - MCFP (current) use of insulin Status: Acute Assessment and Plan: A1c 9.8. The patient's blood glucose was reviewed on 09/19 Glucose poorly controlled. he was not resumed on his 70/30 this morning to explain the glucose into the 500's Continue AccuCheks covering with sliding scale. Hypoglycemia protocol available as needed. Continue frequent glucose checks and insulin until we can resume his 70/30 this evening. (5) End-stage renal disease on hemodialysis: Code(s): N18.6 - End stage renal disease; Z99.2 - Dependence on renal dialysis Status: Chronic Assessment and Plan: Patient has dialysis on . He gets HD in [place]. Nephrology has been consulted. Continue HD per their instructions. Continue Epogen (6) Chronic obstructive pulmonary disease: Code(s): J44.9 - Chronic obstructive pulmonary disease, unspecified Status: Acute Assessment and Plan: No wheezing. On room air. Continue with nebulizer treatments. (7) Congestive heart failure: Code(s): I50.9 - Heart failure, unspecified Status: Acute Assessment and Plan: Patient appears euvolemic. Do not believe the chest x-ray findings are related to CHF. BNP 700. Echo as mentioned above. Continue Lasix. Hemodialysis to control fluid status. (8) Hypertension: Code(s): I10 - Essential (primary) hypertension Status: Acute Assessment and Plan: Patient's blood pressure was reviewed on 09/19 Blood pressure remains reasonably well controlled. Will continue current medications. (9) Obstructive sleep apnea on CPAP: Code(s): G47.33 - Obstructive sleep apnea (adult) (pediatric); Z99.89 - Dependence on other enabling machines and devices Status: Acute Assessment and Plan: BiPAP ordered. Plan DVT Prophylaxis - SCDs Code status - Full Subjective Da
--- NOTE | 2022-09-19 15:34 | PM.PNNEP ---
Progress Note: A&P Assessment and Plan (1) End-stage renal disease on hemodialysis: Code(s): N18.6 - End stage renal disease; Z99.2 - Dependence on renal dialysis Status: Chronic Assessment and Plan: HD today continue M/W/F dialysis schedule follow electrolytes, volume status, and clearance normally follows with Dr. Dunaway at [facility] (2) Bacteremia: Code(s): R78.81 - Bacteremia Status: Acute Assessment and Plan: culture data noted follow-up identification and sensitivies antibiotics adjusted follow repeat cultures (3) Chest pain: Qualifiers: Chest pain type: unspecified Qualified Code(s): R07.9 - Chest pain, unspecified Code(s): R07.9 - Chest pain, unspecified Status: Acute Assessment and Plan: EKG and troponins negative sounds pleuritic in nature by history no chest pain at this time continue supportive therapy (4) Pneumonia: Qualifiers: Laterality: left Lung location: lower lobe of lung Pneumonia type: due to unspecified organism Qualified Code(s): J18.9 - Pneumonia, unspecified organism Code(s): J18.9 - Pneumonia, unspecified organism Status: Acute Assessment and Plan: blood culture results noted on antibiotics continue PRN nebulizer treatments (5) Congestive heart failure: Code(s): I50.9 - Heart failure, unspecified Status: Acute Assessment and Plan: appears compensated at this time fluid removal with dialysis to maintain euolemia still makes urine -- continues lasix and metolazone (6) Hypertension: Code(s): I10 - Essential (primary) hypertension Status: Acute Assessment and Plan: reasonable control at this time follow trend of hemodynamics (7) Anemia: Code(s): D64.9 - Anemia, unspecified Status: Acute Assessment and Plan: related to ESRD but acute infection could be playing a role Epogen with HD follow trend of H/H (8) Insulin dependent type 2 diabetes mellitus: Code(s): E11.9 - Type 2 diabetes mellitus without complications; 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 Subjective Date/time seen: 09/19/22 15:34 Interval history: Follow-up for end stage renal disease on hemodialysis. Tolerated dialysis yesterday without any issues or problems aside from some cramping in the last half hour resulting in patient ending treatment early; no apparent distress voiced; positive blood cultures noted. Exam Narrative: General: elderly but WD/WN Causian male in NAD Heart: normal S1 and S2; no rub Lungs: coarse with a few bibasilar crackles Abdomen: soft, nontender, nondistended, positive bowel sounds Extremities: no cyanosis or clubbing; trace edema Skin: warm and dry; chornic venous stasis changes noted Objective Data Vital Signs Vital Signs: Vital Signs - 24 hr 09/19/22 08:26 09/19/22 08:29 09/19/22 08:34 Temperature 96.7 F L Pulse Rate 89 89 90 Respiratory Rate 20 20 22 H Blood Pressure 115/54 L Pulse Oximetry 94 99 Oxygen Delivery Room Air 09/19/22 08:39 09/19/22 12:04 09/19/22 14:27 Temperature 97.1 F L Pulse Rate 90 89 88 Respiratory Rate 20 20 20 Blood Pressure 132/57 L Pulse Oximetry 98 Oxygen Delivery 09/19/22 14:42 09/19/22 08:00 09/19/22 12:00 Temperature Pulse Rate 87 Respiratory Rate 20 Blood Pressure Pulse Oximetry 98 98 Oxygen Delivery Room Air Room Air Intake/Output Intake/Output: Intake & Output 09/17/22 09/18/22 09/19/22 09/20/22 23:59 23:59 23:59 23:59 Intake Total 930 1320 300 Output Total 1635 0 Balance -705 1320 300 Meds/Results Medications: Active Medications Generic Name Dose Route Start Last Admin Trade Name Chrissq PRN Re
--- NOTE | 2022-09-19 15:34 | P.PNNP_ITS ---
Progress Note: A&P Assessment and Plan (1) End-stage renal disease on hemodialysis: Code(s): N18.6 - End stage renal disease; Z99.2 - Dependence on renal dialysis Status: Chronic Assessment and Plan: * HD today * continue M/W/F dialysis schedule * follow electrolytes, volume status, and clearance * normally follows with Dr. Dunaway at [facility] (2) Bacteremia: Code(s): R78.81 - Bacteremia Status: Acute Assessment and Plan: * culture data noted * follow-up identification and sensitivies * antibiotics adjusted * follow repeat cultures (3) Chest pain: Qualifiers: Chest pain type: unspecified Qualified Code(s): R07.9 - Chest pain, unspecified Code(s): R07.9 - Chest pain, unspecified Status: Acute Assessment and Plan: * EKG and troponins negative * sounds pleuritic in nature by history * no chest pain at this time * continue supportive therapy (4) Pneumonia: Qualifiers: Laterality: left Lung location: lower lobe of lung Pneumonia type: due to unspecified organism Qualified Code(s): J18.9 - Pneumonia, unspecified organism Code(s): J18.9 - Pneumonia, unspecified organism Status: Acute Assessment and Plan: * blood culture results noted * on antibiotics * continue PRN nebulizer treatments (5) Congestive heart failure: Code(s): I50.9 - Heart failure, unspecified Status: Acute Assessment and Plan: * appears compensated at this time * fluid removal with dialysis to maintain euolemia * still makes urine -- continues lasix and metolazone (6) Hypertension: Code(s): I10 - Essential (primary) hypertension Status: Acute Assessment and Plan: * reasonable control at this time * follow trend of hemodynamics (7) Anemia: Code(s): D64.9 - Anemia, unspecified Status: Acute Assessment and Plan: * related to ESRD but acute infection could be playing a role * Epogen with HD * follow trend of H/H (8) Insulin dependent type 2 diabetes mellitus: Code(s): E11.9 - Type 2 diabetes mellitus without complications; 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 Subjective Date/time seen: 09/19/22 15:34 Interval history: Follow-up for end stage renal disease on hemodialysis. Tolerated dialysis yesterday without any issues or problems aside from some cramping in the last half hour resulting in patient ending treatment early; no apparent distress voiced; positive blood cultures noted. Exam Narrative: General: elderly but WD/WN Causian male in NAD Heart: normal S1 and S2; no rub Lungs: coarse with a few bibasilar crackles Abdomen: soft, nontender, nondistended, positive bowel sounds Extremities: no cyanosis or clubbing; trace edema Skin: warm and dry; chornic venous stasis changes noted Objective Data Vital Signs Vital Signs: Vital Signs - 24 hr 09/19/22 08:26 09/19/22 08:29 09/19/22 08:34 Temperature 96.7 F L Pulse Rate 89 89 90 Respiratory Rate 20 20 22 H Blood Pressure 115/54 L Pulse Oximetry 94 99 Oxygen Delivery Room Air 09/19/22 08:39 09/19/22 12:04 09/19/22 14:27
[2022-09-19 16:53] LABS: Glucose Point of Care 475 mg/dl (65-105)
[2022-09-19] MEDS: AZITHROMYCIN 250 MG TABLET 500 MG PO (16:56)
[2022-09-19] MEDS: cefTRIAXone 2 GM/NS 100 ML 2 GM/100 ML BAG IVPB (16:56)
[2022-09-19] MEDS: INSULIN ASPART (*BKC) 100 UNITS/ML SUB-Q (16:57)
--- NOTE | 2022-09-19 17:17 | PC.NURSE ---
BG 475. Dr. Bird aware. Advised to give 8 units and scheduled dose of 70/30 insulin. Recheck in 2 hours.
[2022-09-19] MEDS: INSULIN HUMAN ISOPHAN/REGULAR 70/30 (*BKC) 100 UNITS/ML 56 UNITS SUB-Q (17:39)
[2022-09-19 19:55] LABS: Glucose Point of Care 393 mg/dl (65-105)
[2022-09-19] MEDS: AMITRIPTYLINE HCL 25 MG TABLET 100 MG PO (20:36)
[2022-09-19] MEDS: FUROSEMIDE 40 MG TABLET PO (20:37)
[2022-09-19] MEDS: QUEtiapine FUMARATE 100 MG TABLET 200 MG PO (20:37)
[2022-09-19] MEDS: GABAPENTIN 300 MG CAPSULE 1200 MG PO (20:37)
[2022-09-19] MEDS: HEPARIN SODIUM 5,000 UNITS/ML VIAL 5000 UNITS SUB-Q (20:38)
[2022-09-19] MEDS: LOVASTATIN 20 MG TABLET 40 MG PO (20:38)
[2022-09-19 23:53] LABS: Glucose Point of Care 293 mg/dl (65-105)
[2022-09-20] VITALS (38 sets, daily range): BP systolic 120–157; BP diastolic 34–79; PULSE 80–97; RESP 16–20; TEMP 35.8–36.7; O2SAT 92–100
[2022-09-20] MEDS: INSULIN ASPART (*BKC) 100 UNITS/ML 6 UNITS SUB-Q (00:50)
[2022-09-20] MEDS: IPRATROPIUM BR 0.02% INH SOLN 0.5 MG/2.5 ML VIAL INHALATION ×4 (02:29→20:00)
[2022-09-20] MEDS: LEVALBUTEROL NEB 1.25 MG/3 ML INHALATION ×4 (02:30→20:00)
[2022-09-20 05:12] LABS: Basophils Absolute Auto 0.1 K/mm3 (0.0-0.1); Basophils Percent Auto 0.7 % (0.2-1.2); Eosinophils Absolute Auto 0.3 K/mm3 (0-0.3); Eosinophils Percent Auto 3.6 % (0-4.4); Hematocrit 26.8 % (42.0-52.0); Hemoglobin 9.1 g/dL (14.0-18.0); Immature Granulocyte Absolute 0.02 K/mm3 (0.00-0.031); Immature Granulocyte Percent A 0.3 % (0-0.5); Lymphocytes Absolute Auto 1.65 K/mm3 (0.9-3.2); Lymphocytes Percent Auto 22.6 % (18.3-44.2); Mean Corpuscular Hemoglobin 30.2 pg (26-34); Mean Platelet Volume 9.3 fl (7.4-10.4); Monocytes Absolute Auto 0.9 K/mm3 (0.1-0.6); Monocytes Percent Auto 11.6 % (2.6-8.5); Neutrophils Absolute Auto 4.5 K/mm3 (1.3-6.7); Neutrophils Percent Auto 61.2 % (45.5-73.1); Platelet Count Result 173 k/mm3 (150-375); Red Blood Count 3.01 M/mm3 (4.6-6.20); Red Cell Distribution Width 13.4 % (11.5-14.5); White Blood Count 7.3 K/mm3 (4.5-10.0)
[2022-09-20 05:26] LABS: Alanine Aminotransferase 24 U/L (6-50); Albumin Level 4.2 g/dL (3.5-5.1); Alkaline Phosphatase 45 U/L (38-126); Anion Gap 15 mmol/L (8-16); Aspartate Amino Transferase 24 U/L (17-59); Bilirubin,Total 0.5 mg/dL (0.2-1.3); Blood Urea Nitrogen 73 mg/dL (9-20); Calcium 8.8 mg/dL (8.4-10.2); Carbon Dioxide 25 mmol/L (22-30); Chloride 88 mmol/L (98-107); Estimated CRCL calculation 15 ml/min; Estimated Glomerular Filt Rate 11; Glucose 153 mg/dL (65-110); Magnesium 1.6 mg/dL (1.6-2.3); Phosphorus 7.1 mg/dL (2.5-4.5); Potassium 3.8 mmol/L (3.4-5.0); Sodium 128 mmol/L (137-145)
[2022-09-20 05:32] LABS: Vancomycin Random 16.2 ug/mL (10-20)
[2022-09-20 07:56] LABS: Glucose Point of Care 177 mg/dl (65-105)
[2022-09-20] MEDS: INSULIN HUMAN ISOPHAN/REGULAR 70/30 (*BKC) 100 UNITS/ML 56 UNITS SUB-Q ×2 (08:49→18:36)
[2022-09-20] MEDS: clonazePAM (*CRX) 0.5 MG TABLET 1 MG PO ×2 (08:49→21:23)
[2022-09-20] MEDS: EUCERIN CREAM 120 GM JAR 1 APPLIC TOPICAL (08:50)
[2022-09-20] MEDS: HEPARIN SODIUM 5,000 UNITS/ML VIAL 5000 UNITS SUB-Q ×2 (08:51→21:17)
[2022-09-20] MEDS: GABAPENTIN 300 MG CAPSULE 600 MG PO (08:51)
[2022-09-20] MEDS: allopurinoL 100 MG TABLET PO (08:51)
[2022-09-20] MEDS: AZITHROMYCIN 250 MG TABLET PO (08:51)
[2022-09-20] MEDS: FENOFIBRATE 160 MG TABLET PO (08:51)
--- NOTE | 2022-09-20 10:10 | PM.IMPN ---
Progress Note: A&P Assessment and Plan (1) Pneumonia: Qualifiers: Laterality: left Lung location: lower lobe of lung Pneumonia type: due to unspecified organism Qualified Code(s): J18.9 - Pneumonia, unspecified organism Code(s): J18.9 - Pneumonia, unspecified organism Status: Acute Assessment and Plan: Chest x-ray on admission showing left perihilar and left lower lobe airspace disease consistent with pneumonia. Normal white count. No fevers. lactic elevated but did not meet criteria for sepsis. He was having left-sided pleuritic chest pain. He was started on Levaquin. Blood cultures have returned positive. 09/20: cont abx with rocephin + azithromycin, repeat blood cultures pending (2) Chest pain: Qualifiers: Chest pain type: unspecified Qualified Code(s): R07.9 - Chest pain, unspecified Code(s): R07.9 - Chest pain, unspecified Status: Acute Assessment and Plan: Patient complaints of pleuritic and positional left-sided chest pain. No fever. No elevated white count. He has a slight cough. A two-view chest x-ray showing airspace opacities in left perihilar region and left lower lung zone possibly pneumonia. EKG showed normal sinus rhythm with nonspecific ST-T wave changes. Troponin negative x3. Echocardiogram shows EF of 60-65% and grade 1 diastolic dysfunction. No obvious wall motion abnormalities. Suspect chest pain is related to pneumonia. Treatment as above. If condition does not improve, consider CTA to exclude PE although felt less likely given the positive blood cultures. Dopplers negative for DVT. (3) Bacteremia: Code(s): R78.81 - Bacteremia Status: Acute Assessment and Plan: One set of blood cultures growing Gram-positive cocci in clusters from a aerobic bottle only. Will add vancomycin. Change Levaquin to Rocephin and azithromycin. Follow-up on blood culture results. 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 The patient's blood glucose was reviewed on 09/20 Continue AccuCheks covering with sliding scale. Hypoglycemia protocol available as needed. Continue frequent glucose checks and insulin, cont 70/30 Glucose much better controlled 09/20 (5) End-stage renal disease on hemodialysis: Code(s): N18.6 - End stage renal disease; Z99.2 - Dependence on renal dialysis Status: Chronic Assessment and Plan: Patient has dialysis on . He gets HD in [place]. Nephrology has been consulted. Continue HD per their instructions. Continue Epogen (6) Chronic obstructive pulmonary disease: Code(s): J44.9 - Chronic obstructive pulmonary disease, unspecified Status: Acute Assessment and Plan: No wheezing. On room air. Continue with nebulizer treatments. (7) Congestive heart failure: Code(s): I50.9 - Heart failure, unspecified Status: Acute Assessment and Plan: Patient appears euvolemic. Do not believe the chest x-ray findings are related to CHF. BNP 700. Echo as mentioned above. Continue Lasix. Hemodialysis to control fluid status. (8) Hypertension: Code(s): I10 - Essential (primary) hypertension Status: Acute Assessment and Plan: Patient's blood pressure was reviewed on 09/20 Blood pressure remains reasonably well controlled. Will continue current medications. (9) Obstructive sleep apnea on CPAP: Code(s): G47.33 - Obstructive sleep apnea (adult) (pediatric); Z99.89 - Dependence on other enabling machines and devices Status: Acute Assessment and Plan: BiPAP ordered. Plan DVT Prophylaxis - SCDs Code status - Full Subjective Date/time seen: 09/20/22 10:10 Interval history: 71yo male
[2022-09-20] MEDS: EPOETIN ALFA-EPBX 10,000 UNITS/ML VIAL 10000 UNITS IV PUSH (10:13)
--- NOTE | 2022-09-20 12:20 | PM.PNNEP ---
Progress Note: A&P Assessment and Plan (1) End-stage renal disease on hemodialysis: Code(s): N18.6 - End stage renal disease; Z99.2 - Dependence on renal dialysis Status: Chronic Assessment and Plan: HD today continue M/W/F dialysis schedule follow electrolytes, volume status, and clearance normally follows with Dr. Dunaway at [facility] (2) Bacteremia: Code(s): R78.81 - Bacteremia Status: Acute Assessment and Plan: culture data noted antibiotics adjusted follow repeat cultures (3) Chest pain: Qualifiers: Chest pain type: unspecified Qualified Code(s): R07.9 - Chest pain, unspecified Code(s): R07.9 - Chest pain, unspecified Status: Acute Assessment and Plan: EKG and troponins negative sounds pleuritic in nature by history no chest pain at this time continue supportive therapy (4) Pneumonia: Qualifiers: Laterality: left Lung location: lower lobe of lung Pneumonia type: due to unspecified organism Qualified Code(s): J18.9 - Pneumonia, unspecified organism Code(s): J18.9 - Pneumonia, unspecified organism Status: Acute Assessment and Plan: blood culture results noted on antibiotics continue PRN nebulizer treatments (5) Congestive heart failure: Code(s): I50.9 - Heart failure, unspecified Status: Acute Assessment and Plan: appears compensated at this time fluid removal with dialysis to maintain euolemia still makes urine -- continues lasix and metolazone (6) Hypertension: Code(s): I10 - Essential (primary) hypertension Status: Acute Assessment and Plan: reasonable control at this time follow trend of hemodynamics (7) Anemia: Code(s): D64.9 - Anemia, unspecified Status: Acute Assessment and Plan: related to ESRD but acute infection could be playing a role Epogen with HD follow trend of H/H (8) Insulin dependent type 2 diabetes mellitus: Code(s): E11.9 - Type 2 diabetes mellitus without complications; Z79.4 - care home (current) use of insulin Status: Acute Assessment and Plan: follow accu-cheks glycemic control per hospitalists Will continue to follow. Subjective Date/time seen: 09/20/22 12:20 Interval history: Follow-up for end stage renal disease on hemodialysis. Tolerating dialysis treatment at the time of my visit (seen on HD at 12:10PM); no apparent distress noted; no issues/events overnight or earlier this morning. Exam Narrative: General: elderly but WD/WN Causian male in NAD Heart: normal S1 and S2; no rub Lungs: coarse with a few bibasilar crackles Abdomen: soft, nontender, nondistended, positive bowel sounds Extremities: no cyanosis or clubbing; trace edema Skin: chronic venous stasis changes Objective Data Vital Signs Vital Signs: Vital Signs Temp Pulse Resp BP Pulse Ox O2 Del Method O2 Flow Rate 09/20/22 12:00 83 09/20/22 10:40 82 153/77 H 09/20/22 10:20 83 146/75 H 09/20/22 10:00 82 144/77 H 09/20/22 09:40 83 146/71 H 09/20/22 09:24 82 139/68 09/20/22 09:25 2 09/20/22 09:12 98.0 F 83 20 127/62 92 09/20/22 08:54 86 20 09/20/22 08:40 85 20 94 Room Air 09/20/22 08:36 85 20 09/20/22 08:05 96.8 F L 87 20 133/51 L 98 09/20/22 04:00 80 09/20/22 02:00 85 09/20/22 00:00 87 09/20/22 04:00 97.5 F L 82 20 127/55 L 96 09/20/22 04:00 92 16 92 Autopap 09/20/22 02:45 92 16 92 Autopap 09/20/22 02:42 94 20 09/20/22 02:30 89 20 09/19/22 23:57 97.0 F L 90 22 H 110/51 L 96 09/19/22 23:39 86 25 H 95 Autopap 09/19/22 22:00 86 09/19/22 20:00 94 09/19/22 21:21 89 25 H 95 Autopap 09/19/22 20:59 94 Room Air 09/19/22 20:59 89 20 09/19/22 2
--- NOTE | 2022-09-20 12:20 | P.PNNP_ITS ---
Progress Note: A&P Assessment and Plan (1) End-stage renal disease on hemodialysis: Code(s): N18.6 - End stage renal disease; Z99.2 - Dependence on renal dialysis Status: Chronic Assessment and Plan: * HD today * continue M/W/F dialysis schedule * follow electrolytes, volume status, and clearance * normally follows with Dr. Dunaway at [facility] (2) Bacteremia: Code(s): R78.81 - Bacteremia Status: Acute Assessment and Plan: * culture data noted * antibiotics adjusted * follow repeat cultures (3) Chest pain: Qualifiers: Chest pain type: unspecified Qualified Code(s): R07.9 - Chest pain, unspecified Code(s): R07.9 - Chest pain, unspecified Status: Acute Assessment and Plan: * EKG and troponins negative * sounds pleuritic in nature by history * no chest pain at this time * continue supportive therapy (4) Pneumonia: Qualifiers: Laterality: left Lung location: lower lobe of lung Pneumonia type: due to unspecified organism Qualified Code(s): J18.9 - Pneumonia, unspecified organism Code(s): J18.9 - Pneumonia, unspecified organism Status: Acute Assessment and Plan: * blood culture results noted * on antibiotics * continue PRN nebulizer treatments (5) Congestive heart failure: Code(s): I50.9 - Heart failure, unspecified Status: Acute Assessment and Plan: * appears compensated at this time * fluid removal with dialysis to maintain euolemia * still makes urine -- continues lasix and metolazone (6) Hypertension: Code(s): I10 - Essential (primary) hypertension Status: Acute Assessment and Plan: * reasonable control at this time * follow trend of hemodynamics (7) Anemia: Code(s): D64.9 - Anemia, unspecified Status: Acute Assessment and Plan: * related to ESRD but acute infection could be playing a role * Epogen with HD * follow trend of H/H (8) Insulin dependent type 2 diabetes mellitus: Code(s): E11.9 - Type 2 diabetes mellitus without complications; 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 Subjective Date/time seen: 09/20/22 12:20 Interval history: Follow-up for end stage renal disease on hemodialysis. Tolerating dialysis treatment at the time of my visit (seen on HD at 12:10PM); no apparent distress noted; no issues/events overnight or earlier this morning. Exam Narrative: General: elderly but WD/WN Causian male in NAD Heart: normal S1 and S2; no rub Lungs: coarse with a few bibasilar crackles Abdomen: soft, nontender, nondistended, positive bowel sounds Extremities: no cyanosis or clubbing; trace edema Skin: chronic venous stasis changes Objective Data Vital Signs Vital Signs: Vital Signs Temp Pulse Resp BP Pulse Ox O2 Del Method O2 Flow Rate 09/20/22 12:00 83 09/20/22 10:40 82 153/77 H 09/20/22 10:20 83 146/75 H 09/20/22 10:00 82 144/77 H 09/20/22 09:40 83 146/71 H 09/20/22 09:24 82 139/68 09/20/22 09:25 2 09/20/22 09:12 98.0 F 83 20 127/62 92 09/20/22 08:54 86
[2022-09-20 13:28] LABS: Glucose Point of Care 129 mg/dl (65-105)
[2022-09-20] MEDS: OMEGA 3 POLYUNSAT FATTY ACIDS 1 GM CAP PO (13:31)
[2022-09-20] MEDS: lisinopriL 5 MG TABLET PO (13:32)
[2022-09-20] MEDS: metOLazone 5 MG TABLET PO (13:32)
[2022-09-20] MEDS: cefTRIAXone 2 GM/NS 100 ML 2 GM/100 ML BAG IVPB (15:58)
[2022-09-20 16:46] LABS: Glucose Point of Care 256 mg/dl (65-105)
[2022-09-20] MEDS: INSULIN ASPART (*BKC) 100 UNITS/ML SUB-Q ×2 (18:36→21:23)
[2022-09-20 20:12] LABS: Glucose Point of Care 321 mg/dl (65-105)
--- NOTE | 2022-09-20 20:14 | PCRCNOTE ---
Patient refused use of hospital cpap, stating it kept him awake all night. RT will again encourage use later.
[2022-09-20] MEDS: VANCOMYCIN 1,000 MG/NS 250 ML 1,000 MG/250 ML BAG 250 MG IVPB (21:16)
[2022-09-20] MEDS: FUROSEMIDE 40 MG TABLET PO (21:17)
[2022-09-20] MEDS: AMITRIPTYLINE HCL 25 MG TABLET 100 MG PO (21:17)
[2022-09-20] MEDS: GABAPENTIN 300 MG CAPSULE 1200 MG PO (21:18)
[2022-09-20] MEDS: QUEtiapine FUMARATE 100 MG TABLET 200 MG PO (21:18)
[2022-09-20] MEDS: LOVASTATIN 20 MG TABLET 40 MG PO (21:18)
[2022-09-21] VITALS (16 sets, daily range): BP systolic 126–156; BP diastolic 44–74; PULSE 80–105; RESP 20; TEMP 36.1–36.7; O2SAT 93–100
[2022-09-21 04:51] LABS: Basophils Percent Auto 0.6 % (0.2-1.2); Eosinophils Absolute Auto 0.2 K/mm3 (0-0.3); Eosinophils Percent Auto 2.9 % (0-4.4); Hematocrit 27.1 % (42.0-52.0); Hemoglobin 8.8 g/dL (14.0-18.0); Immature Granulocyte Absolute 0.03 K/mm3 (0.00-0.031); Immature Granulocyte Percent A 0.5 % (0-0.5); Lymphocytes Absolute Auto 1.36 K/mm3 (0.9-3.2); Mean Corpuscular HGB Conc 32.5 g/dl (32-36); Mean Corpuscular Hemoglobin 29.5 pg (26-34); Mean Corpuscular Volume 90.9 fl (80-100); Mean Platelet Volume 9.7 fl (7.4-10.4); Monocytes Absolute Auto 0.9 K/mm3 (0.1-0.6); Monocytes Percent Auto 13.1 % (2.6-8.5); Neutrophils Percent Auto 61.9 % (45.5-73.1); Platelet Count Result 188 k/mm3 (150-375); Red Blood Count 2.98 M/mm3 (4.6-6.20); Red Cell Distribution Width 13.5 % (11.5-14.5); White Blood Count 6.5 K/mm3 (4.5-10.0)
[2022-09-21 05:17] LABS: Alanine Aminotransferase 27 U/L (6-50); Alkaline Phosphatase 53 U/L (38-126); Anion Gap 8 mmol/L (8-16); Aspartate Amino Transferase 30 U/L (17-59); Bilirubin,Total 0.4 mg/dL (0.2-1.3); Blood Urea Nitrogen 42 mg/dL (9-20); Calcium 8.8 mg/dL (8.4-10.2); Carbon Dioxide 32 mmol/L (22-30); Chloride 93 mmol/L (98-107); Estimated CRCL calculation 19 ml/min; Estimated Glomerular Filt Rate 14; Glucose 125 mg/dL (65-110); Potassium 4.3 mmol/L (3.4-5.0); Sodium 133 mmol/L (137-145)
--- NOTE | 2022-09-21 07:24 | P.CDI_ITS ---
CDI Query Clarification Request Documented history of CHF. CHF noted in the assessment and plan. Furosemide listed as a home medication. Patient receiving furosemide. Elevated BNP on 09/18/22 lab work. Edema noted in the documentation. Please specify type and acuity of heart failure if known. * Acute * Chronic * Acute on Chronic * Unknown * Systolic * Diastolic * Combined Systolic and Diastolic * Unknown <Nanette Butler RN - Last Filed: 09/21/22 07:27> Clarified Diagnosis Clarified Diagnosis: Chronic diastolic heart failure <Ramona Elkins DO - Last Filed: 10/09/22 19:11>
[2022-09-21] MEDS: IPRATROPIUM BR 0.02% INH SOLN 0.5 MG/2.5 ML VIAL INHALATION ×2 (07:43→13:06)
[2022-09-21] MEDS: LEVALBUTEROL NEB 1.25 MG/3 ML INHALATION ×2 (07:43→13:06)
[2022-09-21 08:12] LABS: Glucose Point of Care 145 mg/dl (65-105)
[2022-09-21] MEDS: INSULIN HUMAN ISOPHAN/REGULAR 70/30 (*BKC) 100 UNITS/ML 56 UNITS SUB-Q (08:37)
[2022-09-21] MEDS: allopurinoL 100 MG TABLET PO (08:38)
[2022-09-21] MEDS: lisinopriL 5 MG TABLET PO (08:38)
[2022-09-21] MEDS: metOLazone 5 MG TABLET PO (08:38)
[2022-09-21] MEDS: HEPARIN SODIUM 5,000 UNITS/ML VIAL 5000 UNITS SUB-Q (08:38)
[2022-09-21] MEDS: GABAPENTIN 300 MG CAPSULE 600 MG PO (08:38)
[2022-09-21] MEDS: EUCERIN CREAM 120 GM JAR 1 APPLIC TOPICAL (08:38)
[2022-09-21] MEDS: FENOFIBRATE 160 MG TABLET PO (08:38)
[2022-09-21] MEDS: OMEGA 3 POLYUNSAT FATTY ACIDS 1 GM CAP PO (08:38)
[2022-09-21] MEDS: ERGOCALCIFEROL 50,000 UNITS CAPSULE 50000 UNITS PO (08:39)
[2022-09-21] MEDS: AZITHROMYCIN 250 MG TABLET PO (08:39)
[2022-09-21 11:52] LABS: Glucose Point of Care 267 mg/dl (65-105)
[2022-09-21] MEDS: INSULIN ASPART (*BKC) 100 UNITS/ML SUB-Q (12:09)
--- NOTE | 2022-09-21 13:01 | PM.PNNEP ---
Progress Note: A&P Assessment and Plan (1) End-stage renal disease on hemodialysis: Code(s): N18.6 - End stage renal disease; Z99.2 - Dependence on renal dialysis Status: Chronic Assessment and Plan: HD tomorrow continue M/W/F dialysis schedule follow electrolytes, volume status, and clearance normally follows with Dr. Dunaway at [facility] (2) Bacteremia: Code(s): R78.81 - Bacteremia Status: Acute Assessment and Plan: culture data noted - possible contamination antibiotics adjusted follow repeat cultures (negative to date) (3) Chest pain: Qualifiers: Chest pain type: unspecified Qualified Code(s): R07.9 - Chest pain, unspecified Code(s): R07.9 - Chest pain, unspecified Status: Acute Assessment and Plan: EKG and troponins negative sounds pleuritic in nature by history no chest pain at this time continue supportive therapy (4) Pneumonia: Qualifiers: Laterality: left Lung location: lower lobe of lung Pneumonia type: due to unspecified organism Qualified Code(s): J18.9 - Pneumonia, unspecified organism Code(s): J18.9 - Pneumonia, unspecified organism Status: Acute Assessment and Plan: blood culture results noted on antibiotics continue PRN nebulizer treatments (5) Congestive heart failure: Code(s): I50.9 - Heart failure, unspecified Status: Acute Assessment and Plan: appears compensated at this time fluid removal with dialysis to maintain euolemia still makes urine -- continues lasix and metolazone (6) Hypertension: Code(s): I10 - Essential (primary) hypertension Status: Acute Assessment and Plan: reasonable control at this time follow trend of hemodynamics (7) Anemia: Code(s): D64.9 - Anemia, unspecified Status: Acute Assessment and Plan: related to ESRD but acute infection could be playing a role Epogen with HD follow trend of H/H (8) Insulin dependent type 2 diabetes mellitus: Code(s): E11.9 - Type 2 diabetes mellitus without complications; Z79.4 - correction (current) use of insulin Status: Acute Assessment and Plan: follow accu-cheks glycemic control per hospitalists Will continue to follow. Subjective Date/time seen: 09/21/22 13:01 Interval history: Follow-up for end stage renal disease on hemodialysis. Tolerated dialysis treatment yesterday without any issues or problems; breathing/respiratory status seems stable; no apparent issues or problems voiced; no events overnight or earlier this morning. Exam Narrative: General: elderly but WD/WN Causian male in NAD Heart: normal S1 and S2; no rub Lungs: coarse with a few bibasilar crackles Abdomen: soft, nontender, nondistended, positive bowel sounds Extremities: no cyanosis or clubbing; trace edema Skin: chronic venous stasis changes Objective Data Vital Signs Vital Signs: Vital Signs Temp Pulse Resp BP Pulse Ox O2 Del Method 09/21/22 13:00 94 20 09/21/22 12:16 98.0 F 90 20 126/45 L 100 09/21/22 08:00 100 Room Air 09/21/22 10:00 90 09/21/22 08:00 83 09/21/22 08:22 97.9 F 84 20 156/44 H 100 09/21/22 07:56 84 20 09/21/22 07:45 93 Room Air 09/21/22 07:44 84 20 09/20/22 20:00 95 09/21/22 00:00 97 09/21/22 06:00 90 09/21/22 04:00 83 09/21/22 04:00 97 F L 80 20 148/56 H 96 09/21/22 04:00 86 20 99 Room Air 09/21/22 02:00 86 09/20/22 22:00 81 09/21/22 00:00 Room Air 09/21/22 00:00 97.1 F L 105 H 20 140/74 99 09/20/22 20:00 96 20 95 Room Air 09/20/22 20:00 98.1 F 97 16 155/52 H 95 09/20/22 20:12 94 20 09/20/22 20:13 96 95 Room Air 09/20/22 20:01 96 20 09/20/22 16:00 96 Room Air 09/20/22 18:00 83 09/20/22 16:00 83
--- NOTE | 2022-09-21 13:01 | P.PNNP_ITS ---
Progress Note: A&P Assessment and Plan (1) End-stage renal disease on hemodialysis: Code(s): N18.6 - End stage renal disease; Z99.2 - Dependence on renal dialysis Status: Chronic Assessment and Plan: * HD tomorrow * continue M/W/F dialysis schedule * follow electrolytes, volume status, and clearance * normally follows with Dr. Dunaway at [facility] (2) Bacteremia: Code(s): R78.81 - Bacteremia Status: Acute Assessment and Plan: * culture data noted - possible contamination * antibiotics adjusted * follow repeat cultures (negative to date) (3) Chest pain: Qualifiers: Chest pain type: unspecified Qualified Code(s): R07.9 - Chest pain, unspecified Code(s): R07.9 - Chest pain, unspecified Status: Acute Assessment and Plan: * EKG and troponins negative * sounds pleuritic in nature by history * no chest pain at this time * continue supportive therapy (4) Pneumonia: Qualifiers: Laterality: left Lung location: lower lobe of lung Pneumonia type: due to unspecified organism Qualified Code(s): J18.9 - Pneumonia, unspecified organism Code(s): J18.9 - Pneumonia, unspecified organism Status: Acute Assessment and Plan: * blood culture results noted * on antibiotics * continue PRN nebulizer treatments (5) Congestive heart failure: Code(s): I50.9 - Heart failure, unspecified Status: Acute Assessment and Plan: * appears compensated at this time * fluid removal with dialysis to maintain euolemia * still makes urine -- continues lasix and metolazone (6) Hypertension: Code(s): I10 - Essential (primary) hypertension Status: Acute Assessment and Plan: * reasonable control at this time * follow trend of hemodynamics (7) Anemia: Code(s): D64.9 - Anemia, unspecified Status: Acute Assessment and Plan: * related to ESRD but acute infection could be playing a role * Epogen with HD * follow trend of H/H (8) Insulin dependent type 2 diabetes mellitus: Code(s): E11.9 - Type 2 diabetes mellitus without complications; Z79.4 - rn long term care (current) use of insulin Status: Acute Assessment and Plan: * follow accu-cheks * glycemic control per hospitalists Will continue to follow. Subjective Date/time seen: 09/21/22 13:01 Interval history: Follow-up for end stage renal disease on hemodialysis. Tolerated dialysis treatment yesterday without any issues or problems; breathing/respiratory status seems stable; no apparent issues or problems voiced; no events overnight or earlier this morning. Exam Narrative: General: elderly but WD/WN Causian male in NAD Heart: normal S1 and S2; no rub Lungs: coarse with a few bibasilar crackles Abdomen: soft, nontender, nondistended, positive bowel sounds Extremities: no cyanosis or clubbing; trace edema Skin: chronic venous stasis changes Objective Data Vital Signs Vital Signs: Vital Signs Temp Pulse Resp BP Pulse Ox O2 Del Method 09/21/22 13:00 94 20 09/21/22 12:16 98.0 F 90 20 126/45 L 100 09/21/22 08:00 100 Room Air 09/21/22 10:00 90 09/21/22 08:00 83 09/21/22 08:22 97.9 F 84 20 156/44 H 100 09/21/22 07:56 84 20
--- NOTE | 2022-09-21 13:24 | PM.DS ---
DS: Admitting Diagnosis Discharge Date 09/21/22 Admitting Diagnosis Chest pain DS: Discharge Diagnosis Discharge Diagnosis (1) Pneumonia: Qualifiers: Laterality: left Lung location: lower lobe of lung Pneumonia type: due to unspecified organism Qualified Code(s): J18.9 - Pneumonia, unspecified organism Code(s): J18.9 - Pneumonia, unspecified organism Status: Acute Assessment and Plan: Chest x-ray on admission showing left perihilar and left lower lobe airspace disease consistent with pneumonia. Normal white count. No fevers. lactic elevated but did not meet criteria for sepsis. He was having left-sided pleuritic chest pain. He was started on Levaquin. Blood cultures have returned positive. 09/20: cont abx with rocephin + azithromycin, repeat blood cultures pending (2) Chest pain: Qualifiers: Chest pain type: unspecified Qualified Code(s): R07.9 - Chest pain, unspecified Code(s): R07.9 - Chest pain, unspecified Status: Acute Assessment and Plan: Patient complaints of pleuritic and positional left-sided chest pain. No fever. No elevated white count. He has a slight cough. A two-view chest x-ray showing airspace opacities in left perihilar region and left lower lung zone possibly pneumonia. EKG showed normal sinus rhythm with nonspecific ST-T wave changes. Troponin negative x3. Echocardiogram shows EF of 60-65% and grade 1 diastolic dysfunction. No obvious wall motion abnormalities. Suspect chest pain is related to pneumonia. Treatment as above. If condition does not improve, consider CTA to exclude PE although felt less likely given the positive blood cultures. Dopplers negative for DVT. (3) Bacteremia: Code(s): R78.81 - Bacteremia Status: Acute Assessment and Plan: One set of blood cultures growing Gram-positive cocci in clusters from a aerobic bottle only. Will add vancomycin. Change Levaquin to Rocephin and azithromycin. Follow-up on blood culture results. 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 The patient's blood glucose was reviewed on 09/20 Continue AccuCheks covering with sliding scale. Hypoglycemia protocol available as needed. Continue frequent glucose checks and insulin, cont 70/30 Glucose much better controlled 09/20 (5) End-stage renal disease on hemodialysis: Code(s): N18.6 - End stage renal disease; Z99.2 - Dependence on renal dialysis Status: Chronic Assessment and Plan: Patient has dialysis on . He gets HD in [place]. Nephrology has been consulted. Continue HD per their instructions. Continue Epogen (6) Chronic obstructive pulmonary disease: Code(s): J44.9 - Chronic obstructive pulmonary disease, unspecified Status: Acute Assessment and Plan: No wheezing. On room air. Continue with nebulizer treatments. (7) Congestive heart failure: Code(s): I50.9 - Heart failure, unspecified Status: Acute Assessment and Plan: Patient appears euvolemic. Do not believe the chest x-ray findings are related to CHF. BNP 700. Echo as mentioned above. Continue Lasix. Hemodialysis to control fluid status. (8) Hypertension: Code(s): I10 - Essential (primary) hypertension Status: Acute Assessment and Plan: Patient's blood pressure was reviewed on 09/20 Blood pressure remains reasonably well controlled. Will continue current medications. (9) Obstructive sleep apnea on CPAP: Code(s): G47.33 - Obstructive sleep apnea (adult) (pediatric); Z99.89 - Dependence on other enabling machines and devices Status: Acute Assessment and Plan: BiPAP ordered. Plan DVT Prophylaxis - SCDs Code status - Fu
[2022-09-21 16:04] LABS: Glucose Point of Care 264 mg/dl (65-105)
== END 2022-09-21 17:16 | disposition home or self-care (01) | DRG 193 ==
LOC: ANHED 09:08 → ANHIMU 10:47
PROVIDERS: Internal Medicine; Internal Medicine Nephrology; Nurse Practitioner; Admitting Provider Family Medicine; Emergency Provider Emergency Medicine; PCP Internal Medicine; Visit Provider Student in an Organized Health Care Education/Training Program
DX: J18.9 Pneumonia, unspecified organism (principal); N18.6 End stage renal disease; R78.81 Bacteremia; J44.0 Chronic obstructive pulmonary disease with (acute) lower respiratory infection; I13.2 Hypertensive heart and chronic kidney disease with heart failure and with stage 5 chronic kidney disease, or end stage renal disease; I50.9 Heart failure, unspecified; E11.22 Type 2 diabetes mellitus with diabetic chronic kidney disease; B95.61 Methicillin susceptible Staphylococcus aureus infection as the cause of diseases classified elsewhere; G47.33 Obstructive sleep apnea (adult) (pediatric); Z99.2 Dependence on renal dialysis; Z79.4 Long term (current) use of insulin; Z98.1 Arthrodesis status; Z87.891 Personal history of nicotine dependence
CPT/HCPCS: 36415; 71046; 80053; 80202; 82948; 83036; 83605; 83690; 83735; 83880; 84100; 84443; 84484; 85025; 85610; 85730; 86706; 87040; 87081; 87147; 87181; 87186; 87340; 93005; 93306; 93970; 94640; 96365; 96375; 99285; A9270; G0257; G0378; J0696; J1200; J1644; J1815; J1956; J3370; J7030; Q5105

== ENCOUNTER 2023-07-04 07:26 | Emergency (ER) | payer MEDICARE, SELFPAY ==
[2023-07-04] VITALS (9 sets, daily range): BP systolic 146–186; BP diastolic 51–90; PULSE 77–83; RESP 13–20; TEMP 36.4–36.9; O2SAT 98–100
--- NOTE | ~2023-07-04 | CT_ITS ---
EXAMINATION: CT cervical spine wo con DATE: 07/04/2023 08:17 INDICATION: Syncope. Head injury. TECHNIQUE: Computed tomography (CT) of the cervical spine was performed without intravenous contrast. Automated exposure control and iterative reconstruction technique were employed. The dose-length pro duct was 624.59 mGy-cm. COMPARISON: None FINDINGS: Partially visualized is a nodule in right lung upper lobe measuring at least 2 cm . There i s 2 mm retrolisthesis of C5 on C6. There is 5 degrees levocurvature of cervical spine. Vertebral body heights are normal. There is mildly decreased disc height at C4-C5, moderately decreased disc height at C5-C6, and mildly decreased disc height at C6-C7. The following disc levels are specifically disc ussed: C2-C3: There is mild bilateral uncovertebral joint osteoarthritis. There is severe bilateral facet emily int osteoarthritis. There is mild left neural foraminal stenosis. There is no central canal stenosis. C3-C4: There is mild bilateral uncovertebral joint osteoarthritis. There is severe bilateral facet emily int osteoarthritis. There is mild bilateral neural foraminal stenosis. There is mild central canal st enosis. C4-C5: There is mild left uncovertebral joint osteoarthritis. There is mild right and severe left fac et joint osteoarthritis. There is mild left neural foraminal stenosis. There is mild central canal st enosis. C5-C6: There is severe bilateral uncovertebral joint osteoarthritis. There is moderate bilateral face t joint osteoarthritis. There is moderate right and mild left neural foraminal stenosis. There is mil d central canal stenosis. C6-C7: There is moderate right and mild left uncovertebral joint osteoarthritis. There is mild right and moderate left facet joint osteoarthritis. There is mild bilateral neural foraminal stenosis. Ther e is mild central canal stenosis. C7-T1: There is no uncovertebral joint osteoarthritis. There is severe bilateral facet joint osteoart hritis. There is mild bilateral neural foraminal stenosis. There is no central canal stenosis. IMPRESSION: 1. No fracture. 2. Moderate cervical spondylosis. Reviewed, dictated and finalized at location A.
--- NOTE | ~2023-07-04 | CT_ITS ---
EXAMINATION: CT brain wo con DATE: 07/04/2023 08:16 INDICATION: Head injury TECHNIQUE: Computed tomography (CT) of the head was performed without intravenous contrast. Sagittal and coronal reconstructions were performed. The mA was adjusted according to patient size. Iterative reconstruction technique was employed. The dose-length product was 681.00 mGy-cm. COMPARISON: head CT dated 12/31/2021 FINDINGS: No fracture. No acute intracranial hemorrhage, acute infarction or abnormal extra axial fluid collect ion. There is mild scattered white matter hypoattenuation consistent with chronic small vessel ischem ic disease. Ventricles are normal and symmetric. No mass/mass effect. Changes of bilateral intraocul ar lens replacement. The orbits, paranasal sinuses and mastoid air cells are normal. IMPRESSION: 1. Normal aging brain. No fracture or acute intracranial process. Reviewed, dictated and finalized at location B.
--- NOTE | 2023-07-04 07:30 | ECG_ITS ---
Measurements Intervals [place] Rate: 79 P: -5 OR: 188 QRS: 52 QRSD: 105 T: 40 QT: 380 QTc: 437 Interpretive Statements SINUS RHYTHM BORDERLINE AV CONDUCTION DELAY NONSPECIFIC ST & T-WAVE ABNORMALITY- ANTEROLAT/INF LEADS BASELINE ARTIFACT- I, II, AVR BORDERLINE ECG COMPARED TO ECG 09/18/2022 08:13:43 NO SIGNIFICANT CHANGES Electronically Signed On 07-04-2023 7:46:22 CDT by Behzad Thomas D.O.
[2023-07-04 08:00] LABS: Basophils Absolute Auto 0.1 K/mm3 (0.0-0.1); Basophils Percent Auto 0.9 % (0.2-1.2); Eosinophils Absolute Auto 0.3 K/mm3 (0-0.3); Eosinophils Percent Auto 5.1 % (0-4.4); Hematocrit 28.9 % (42.0-52.0); Hemoglobin 9.5 g/dL (14.0-18.0); Immature Granulocyte Absolute 0.05 K/mm3 (0.00-0.031); Immature Granulocyte Percent A 0.8 % (0-0.5); Lymphocytes Absolute Auto 1.24 K/mm3 (0.9-3.2); Lymphocytes Percent Auto 18.7 % (18.3-44.2); Mean Corpuscular HGB Conc 32.9 g/dl (32-36); Mean Corpuscular Hemoglobin 31.5 pg (26-34); Mean Corpuscular Volume 95.7 fl (80-100); Monocytes Absolute Auto 0.6 K/mm3 (0.1-0.6); Neutrophils Absolute Auto 4.3 K/mm3 (1.3-6.7); Neutrophils Percent Auto 65.5 % (45.5-73.1); Platelet Count Result 197 k/mm3 (150-375); Red Blood Count 3.02 M/mm3 (4.6-6.20); Red Cell Distribution Width 13.7 % (11.5-14.5); White Blood Count 6.6 K/mm3 (4.5-10.0)
--- NOTE | 2023-07-04 08:03 | ED.GENADULT ---
HPI - General Adult General Chief complaint: Fall Stated complaint: SYNCOPE,FALL Time Seen by Provider: 07/04/23 07:34 History of Present Illness HPI narrative: Patient is a 72-year-old male who presents ER after a fall outside his home. Reports he is walking to go to hemodialysis when his legs got weak and he fell down striking his head on the ground. Reports brief loss of consciousness. Has an abrasion to the posterior head. Reports he has had increased weakness over last week with couple of falls. Reports he felt weak on Sunday so he skipped dialysis. No fevers or chills or sweats. No chest pain or chest pressure. He is not on any blood thinning medications. New numbness or tingling to the arms or legs. No extremity injury. Related Data Home Medications Medication Instructions Recorded Confirmed citalopram 40 mg tablet 40 mg PO DAILY 06/05/19 09/18/22 lisinopril 5 mg tablet 5 mg PO DAILY 06/05/19 09/18/22 cholecalciferol (vitamin D3) 1,250 50,000 unit PO 2XW 06/07/19 09/18/22 mcg (50,000 unit) tablet lovastatin 40 mg tablet 40 mg PO HS 06/07/19 09/18/22 quetiapine 100 mg tablet 200 mg PO DAILY 06/07/19 09/18/22 clonazepam 1 mg tablet 1 mg PO BID PRN Anxiety 01/01/20 09/18/22 fenofibrate micronized 200 mg 160 mg PO DAILY 01/01/20 09/18/22 capsule gabapentin 300 mg capsule 600 mg PO TID 04/05/20 09/18/22 omega-3 fatty acids 1,000 mg 3,000 mg PO BID 04/05/20 09/18/22 capsule (Fish Oil Concentrate) acetaminophen 650 mg tablet 650 mg PO Q6H PRN Pain 12/31/21 09/18/22 albuterol sulfate 90 mcg/actuation 2 puff inhalation PRN PRN 12/31/21 09/18/22 aerosol inhaler Shortness Of Breath Or Wheezing allopurinol 100 mg tablet 100 mg PO DAILY 12/31/21 09/18/22 (Zyloprim) amitriptyline 100 mg tablet 100 mg PO DAILY 12/31/21 09/18/22 furosemide 40 mg tablet 40 mg PO DAILY 12/31/21 09/18/22 insulin aspar prt-insulin aspart 70 unit subcut BID 12/31/21 09/18/22 100 unit/mL (70-30) subcutaneous soln loperamide 2 mg tablet (Imodium 2 mg PO Q6H PRN Diarrhea 12/31/21 09/18/22 A-D) melatonin 5 mg tablet 5 mg PO HS PRN Insomnia 12/31/21 09/18/22 metolazone 5 mg tablet 5 mg PO DAILY 12/31/21 09/18/22 sucroferric oxyhydroxide 500 mg 1,000 mg PO TID 12/31/21 09/18/22 chewable tablet (Velphoro) Allergies Allergy/AdvReac Type Severity Reaction Status Date / Time No Known Allergies Allergy Verified 09/18/22 11:27 Review of Systems Review of Systems: All systems reviewed & are unremarkable except as noted in HPI and below Constitutional: Constitutional: Denies fatigue, Denies fever(s) and Reports weakness ENT: Reports system reviewed and no additional complaints, except as documented Cardiovascular: Cardiovascular: Reports no additional cardiovascular complaints Respiratory: Respiratory: Reports no additional respiratory complaints Gastrointestinal: Gastrointestinal: Reports no additional gastrointestinal complaints Musculoskeletal: Musculoskeletal: Reports no additional musculoskeletal complaints [facility] Past Medical History Medical History Chronic obstructive pulmonary disease Congestive heart failure End-stage renal disease on hemodialysis Sunday, Sunday, Sunday. Hyperlipidemia Hypertension Insulin dependent type 2 diabetes mellitus Obstructive sleep apnea on CPAP Pancreatitis Surgical History Surgical History History of bilateral cataract extraction History of fusion of cervical spine Family History Family History Mother Family history of congestive heart failure Hypertension Family history of mental disorder Diabetes mellitus Depression Family history of cardiovascular disease Father Family history of lung cancer Family history of mental disorder Depression Social History Social History (Updated 09/18/22 @ 19
[2023-07-04 08:09] LABS: Alanine Aminotransferase 25 U/L (6-50); Albumin Level 4.1 g/dL (3.5-5.1); Alkaline Phosphatase 70 U/L (38-126); Anion Gap 10 mmol/L (8-16); Aspartate Amino Transferase 27 U/L (17-59); Bilirubin,Total 0.4 mg/dL (0.2-1.3); Blood Urea Nitrogen 94 mg/dL (9-20); Calcium 9.2 mg/dL (8.4-10.2); Carbon Dioxide 22 mmol/L (22-30); Chloride 97 mmol/L (98-107); Estimated CRCL calculation 12 ml/min; Estimated Glomerular Filt Rate 8; Glucose 214 mg/dL (65-110); Sodium 129 mmol/L (137-145)
[2023-07-04 09:06] LABS: Influenza A QL RT-PCR Negative (Negative); Influenza B QL RT-PCR Negative (Negative); SARS-CoV-2 RNA PCR Negative (Negative)
== END 2023-07-04 10:10 | disposition home or self-care (01) ==
PROVIDERS: Emergency Provider Emergency Medicine; PCP Internal Medicine
DX: S00.01XA Abrasion of scalp, initial encounter (principal); Z20.822 Contact with and (suspected) exposure to COVID-19; J44.9 Chronic obstructive pulmonary disease, unspecified; I13.2 Hypertensive heart and chronic kidney disease with heart failure and with stage 5 chronic kidney disease, or end stage renal disease; E11.22 Type 2 diabetes mellitus with diabetic chronic kidney disease; N18.6 End stage renal disease; I50.9 Heart failure, unspecified; Z99.2 Dependence on renal dialysis; Z79.4 Long term (current) use of insulin; G47.30 Sleep apnea, unspecified; W01.0XXA Fall on same level from slipping, tripping and stumbling without subsequent striking against object, initial encounter
CPT/HCPCS: 36415; 70450; 72125; 80053; 85025; 87636; 93005; 99284